=== PATIENT | female | born 1970 | race American Indian/Alaskan Native ===

== ENCOUNTER 2016-05-31 08:15 | Emergency (ER) | payer MEDICARE ==
[2016-05-31 08:42] VITALS: BP 138/94
--- NOTE | 2016-05-31 11:30 | XRay Report ---
RIGHT SHOULDER: History: Right shoulder injury, pain. Routine views demonstrate normal bony and soft tissue structures with normal joint alignment of the shoulder. IMPRESSION: Unremarkable right shoulder films.
--- NOTE | 2016-05-31 11:30 | XRay Report ---
RIGHT KNEE, 3 views: History: Right knee injury, pain. The bony architecture is intact without evidence of fracture or dislocation. No significant soft tissue abnormality is seen. IMPRESSION: Normal right knee.
--- NOTE | 2016-05-31 12:02 | Emergency Department Report ---
ED Fall HPI - General Chief Complaint: Fall Stated Complaint: FALL/RT KNEE/SHOULDER PAIN Time Seen by Provider: 05/31/16 10:15 Source: patient Mode of arrival: Ambulatory Limitations: No Limitations - History of Present Illness Initial Comments: Patient presents after falling down 5 stairs running after her dogs. She complains of right shoulder and right knee pain. She has tried tramadol and ibuprofen 800 mg with no relief. She denies hitting her head, headache or LOC. Complaint: fall -: Sudden Fall From: down stairs (#) (5) When Fall Occurred: other (occurrence was last night at 8:30 PM) Fall Witnessed: no Place Fall Occurred: home Loss of Consciousness: none Prolonged Down Time?: no Symptoms Prior to Fall: none Location - Extremities: Right: Shoulder, Knee Severity: severe Severity scale (0 -10): 10 Quality: sharp, aching Context: tripped/slipped Associated Symptoms: denies - Related Data Home Medications Medication Instructions Recorded Confirmed Last Taken Insulin Glargine,Hum.rec.anlog 60 unit SQ QHS 04/04/13 01/15/16 10/29/14 [Lantus Solostar] Lisinopril [Zestril TAB] 20 mg PO QDAY 04/04/13 01/15/16 10/29/14 Insulin Aspart Prot/Aspart 40 units SUB-Q BID 01/15/16 01/15/16 Unknown [NovoLOG Mix 70/30 VIAL] Previous Rx's Medication Instructions Recorded Last Taken Type Levofloxacin [Levaquin TAB] 750 mg PO QDAY #10 tablet 01/15/16 Unknown Rx Cyclobenzaprine HCl 7.5 mg PO BID PRN #14 tab 05/31/16 Unknown Rx [Cyclobenzaprine 7.5 MG TAB] Diclofenac Sodium 75 mg PO DAILY #7 tablet. 05/31/16 Unknown Rx Allergies Allergy/AdvReac Type Severity Reaction Status Date / Time morphine Allergy DECREASED Verified 05/31/16 08:38 HR shellfish derived Allergy Shortness Verified 05/31/16 08:38 of Breath ED Review of Systems ROS: Stated complaint: FALL/RT KNEE/SHOULDER PAIN Other details as noted in HPI Constitutional: denies: chills, fever ENT: denies: ear pain, throat pain Respiratory: denies: cough, shortness of breath, wheezing Cardiovascular: denies: chest pain, palpitations Gastrointestinal: denies: abdominal pain, nausea, diarrhea Musculoskeletal: as per HPI Skin: denies: rash, lesions Neurological: denies: headache, weakness, paresthesias Psychiatric: denies: anxiety, depression ED Past Medical Hx - Past Medical History Hx Hypertension: Yes Hx CVA: No Hx Heart Attack/AMI: No Hx Congestive Heart Failure: No Hx Diabetes: Yes Hx Deep Vein Thrombosis: No Hx Pulmonary Embolism: No Hx GERD: No Hx Liver Disease: No Hx Renal Disease: No Hx Sickle Cell Disease: No Hx Arthritis: No Hx Headaches / Migraines: No Hx Seizures: No Hx Kidney Stones: No Hx Psychiatric Treatment: No Hx Asthma: Yes Hx COPD: No Hx Tuberculosis: No Hx Dementia: No Hx HIV: No Additional medical history: enlarge heart - Surgical History Hx Coronary Stent: No Hx Open Heart Surgery: No Hx Pacemaker: No Hx Internal Defibrillator: No Hx Cholecystectomy: No Hx Appendectomy: No Hx Breast Surgery: No Additional Surgical History: TUBAL LIGATION. Hysterectomy - Social History Smoking Status: Never Smoker Substance Use Type: None - Medications Home Medications: Home Medications Medication Instructions Recorded Confirmed Last Taken Type Insulin Glargine,Hum.rec.anlog 60 unit SQ QHS 04/04/13 01/15/16 10/29/14 History [Lantus Solostar] Lisinopril [Zestril TAB] 20 mg PO QDAY 04/04/13 01/15/16 10/29/14 History Insulin Aspart Prot/Aspart 40 units SUB-Q BID 01/15/16 01/15/16 Unknown History [NovoLOG Mix 70/30 VIAL] Levofloxacin [Levaquin TAB] 750 mg PO QDAY #10 tablet 01/15/16 Unknown Rx Cyclobenzaprine HCl 7.5 mg PO BID PRN #14 tab 05/31/16 Unknown Rx [Cyclobenzaprine 7.5 MG TAB] Diclofenac Sodium 75 mg PO DAILY #7 tablet. 05/31/16 Unknown Rx ED Physical Exam - General Limitations: No Limitations General appearance: alert, in no apparent distress - Head Head exam: Present: atraumatic, normocephalic - Eye Eye exam: Present: normal appearance - Neck Neck exam: Present: normal inspection, full ROM. Absent: tenderness - Respiratory Respiratory exam: Present: normal lung sounds bilaterally. Absent: respiratory distress - Cardiovascular Cardiovascular Exam: Present: regular rate, normal rhythm. Absent: systolic murmur, diastolic murmur, rubs, gallop - GI/Abdominal GI/Abdominal exam: Present: soft, normal bowel sounds. Absent: tenderness - Expanded Upper Extremity Exam Right Shoulder Exam: Present: normal inspection, full ROM (but with pain), tenderness (anterior). Absent: swelling, abrasion, ecchymosis Upper Arm exam: Present: normal inspection, full ROM Elbow exam: Present: normal inspection, full ROM Forearm Wrist exam: Present: normal inspection, full ROM Hand Wrist exam: Present: normal inspection, full ROM Neuro motor exam: Present: wrist extension intact, thumb opposition intact, thumb IP flexion intact, thumb adduction intact Neurosensory exam: Present: radial nerve intact, ulnar nerve intact Vascular: Absent: vascular compromise - Expanded Lower Extremity Exam Right Hip exam: Present: normal inspection, full ROM Upper Leg exam: Present: normal inspection, full ROM Knee exam: Present: normal inspection, tenderness (right anterior). Absent: full ROM (Limited without pain), swelling, abrasion, ecchymosis, deformity Lower Leg exam: Present: normal inspection, full ROM. Absent: tenderness Ankle exam: Present: normal inspection, full ROM. Absent: tenderness Neuro vascular tendon exam: Present: no vascular compromise - Neurological Exam Neurological exam: Present: alert, oriented X3 - Psychiatric Psychiatric exam: Present: normal affect, normal mood - Skin Skin exam: Present: warm, dry, intact, normal color. Absent: rash ED Course Vital Signs 05/31/16 08:39 Temperature 97.7 F Pulse Rate 101 H Respiratory 16 Rate Blood Pressure 138/94 O2 Sat by Pulse 100 Oximetry ED Medical Decision Making - Medical Decision Making Patient presents after a fall down the steps, complaining of right shoulder and right knee pain. X-rays of shoulder and knee are negative. We will give Flexeril twice a day and diclofenac. We will advise patient to follow up with PCP if symptoms do not resolve or worsen. - Differential Diagnosis knee fracture, sprain, muscle spasm Critical Care Time: No Critical care attestation.: If time is entered above; I have spent that time in minutes in the direct care of this critically ill patient, excluding procedure time. ED Disposition Clinical Impression: Shoulder sprain, Knee sprain Disposition: DISCHARGED TO HOME OR SELFCARE Is pt being admited?: No Does the pt Need Aspirin: No Condition: Stable Instructions: Shoulder Sprain (ED), Knee Sprain (ED), Knee Exercises (GEN) Additional Instructions: Do not take diclofenac with any other inside a including Motrin, ibuprofen, Aleve. Rest, ice, heat. Follow with PCP if symptoms do not resolve or worsen. Prescriptions: Cyclobenzaprine HCl [Cyclobenzaprine 7.5 MG TAB] 7.5 mg PO BID PRN #14 tab PRN Reason: Pain Diclofenac Sodium 75 mg PO DAILY #7 tablet. Time of Disposition: 12:07
== END 2016-05-31 12:31 | disposition home or self-care (01) ==
LOC: ED 08:15
DX: S83.91XA Sprain of unspecified site of right knee, initial encounter (principal); S43.401A Unspecified sprain of right shoulder joint, initial encounter; I10 Essential (primary) hypertension; E11.9 Type 2 diabetes mellitus without complications; J45.909 Unspecified asthma, uncomplicated; Z79.4 Long term (current) use of insulin; Z88.5 Allergy status to narcotic agent; Z91.013 Allergy to seafood; W10.9XXA Fall (on) (from) unspecified stairs and steps, initial encounter; Y93.9 Activity, unspecified; Y92.009 Unspecified place in unspecified non-institutional (private) residence as the place of occurrence of the external cause; Y99.9 Unspecified external cause status

== ENCOUNTER 2016-06-28 18:36 | Emergency (ER) | payer MEDICARE ==
[2016-06-28 22:25] VITALS: BP 158/111
== END 2016-06-29 01:20 | disposition left against medical advice (07) ==
LOC: ED 18:36
DX: M79.604 Pain in right leg (principal); Z53.21 Procedure and treatment not carried out due to patient leaving prior to being seen by health care provider

== ENCOUNTER 2016-09-20 17:25 | Emergency (ER) | payer OTHER, MEDICARE ==
[2016-09-20] MEDS ORDERED: PERCOCET 5/325 PO ONE (20:26)
[2016-09-20] MEDS ORDERED: VALIUM PO ONE (20:26)
[2016-09-20] MEDS ORDERED: NACL ONE (20:27)
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
[2016-09-20 20:41] LABS: Basophils % (Auto) 0.6 % (0.0-1.8); Eosinophils % (Auto) 0.9 % (0.0-4.3); Hematocrit 37.5 % (30.3-42.9); Hemoglobin 12.4 gm/dl (10.1-14.3); Mean Corpuscular HGB Conc 33 % (30-34); Mean Corpuscular Hemoglobin 31 pg (28-32); Mean Corpuscular Volume 94 fl (79-97); Platelet Count 173 K/mm3 (140-440); Red Blood Count 3.98 M/mm3 (3.65-5.03); Red Cell Distribution Width 12.4 % (13.2-15.2); White Blood Count 11.7 K/mm3 (4.5-11.0)
[2016-09-20 20:51] LABS: INR 1.02 (0.87-1.13)
[2016-09-20 20:52] LABS: Partial Thromboplastin Time 34.4 Sec. (24.2-36.6)
[2016-09-20 21:27] LABS: Anion Gap 19 mmol/L; Blood Urea Nitrogen 7 mg/dL (7-17); Calcium 8.9 mg/dL (8.4-10.2); Carbon Dioxide 21 mmol/L (22-30); Chloride 100.5 mmol/L (98-107); Glucose 194 mg/dL (65-100); Potassium 3.7 mmol/L (3.6-5.0); Sodium 137 mmol/L (137-145)
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
[2016-09-21 01:18] VITALS: BP 116/65
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
== END 2016-09-21 01:16 | disposition home or self-care (01) ==
LOC: ED 17:25
DX: R10.84 Generalized abdominal pain (principal); R07.9 Chest pain, unspecified; I10 Essential (primary) hypertension; E11.9 Type 2 diabetes mellitus without complications; J45.909 Unspecified asthma, uncomplicated; Z98.51 Tubal ligation status; Z90.710 Acquired absence of both cervix and uterus; Z79.4 Long term (current) use of insulin; Z88.5 Allergy status to narcotic agent; Z91.013 Allergy to seafood; V49.59XA Passenger injured in collision with other motor vehicles in traffic accident, initial encounter; Y93.89 Activity, other specified; Y99.8 Other external cause status; Y92.89 Other specified places as the place of occurrence of the external cause
CPT/HCPCS: 36415; 71010; 71260; 72170; 74177; 80048; 85025; 85610; 85730; 99285; Q9967

== ENCOUNTER 2017-02-10 09:50 | Emergency (ER) | payer MEDICARE ==
--- NOTE | 2017-02-10 10:54 | XRay Report ---
Chest 2 views: History: Shortness of breath. Findings: Normal cardiomediastinal silhouette. Trachea is midline. No consolidation, pneumothorax or pleural effusion. Impression: No acute cardiopulmonary findings.
[2017-02-10 10:57] LABS: Basophils % (Auto) 0.7 % (0.0-1.8); Eosinophils % (Auto) 1.9 % (0.0-4.3); Hematocrit 37.7 % (30.3-42.9); Mean Corpuscular HGB Conc 35 % (30-34); Mean Corpuscular Hemoglobin 33 pg (28-32); Mean Corpuscular Volume 95 fl (79-97); Platelet Count 152 K/mm3 (140-440); Red Blood Count 3.97 M/mm3 (3.65-5.03); Red Cell Distribution Width 12.2 % (13.2-15.2); White Blood Count 8.3 K/mm3 (4.5-11.0)
[2017-02-10 11:15] LABS: Anion Gap 18 mmol/L; BUN/Creatinine Ratio 12; Blood Urea Nitrogen 7 mg/dL (7-17); Carbon Dioxide 25 mmol/L (22-30); Chloride 100.5 mmol/L (98-107); Glucose 202 mg/dL (65-100); Potassium 4.2 mmol/L (3.6-5.0); Sodium 139 mmol/L (137-145)
--- NOTE | 2017-02-10 11:32 | Emergency Department Report ---
ED Lower Extremity HPI - General Chief Complaint: Dyspnea/Respdistress Stated Complaint: BLOOD CLOT Time Seen by Provider: 02/10/17 10:41 Source: patient Mode of arrival: Ambulatory Limitations: No Limitations - History of Present Illness Initial Comments: 46-year-old female with known history of DVT here with complaint of right leg pain. Patient states that she stopped L request approximate 30 days given and has worsening leg pain. She complains of some mild shortness of breath but no chest pain. No fevers chills nausea vomiting. States that her leg has felt slightly swollen. No recent additional trauma. MD Complaint: leg injury Type of Injury: other Place: home Severity: mild Improves With: nothing Worsens With: weight bearing - Related Data Home Medications Medication Instructions Recorded Confirmed Last Taken Insulin Glargine,Hum.rec.anlog 60 unit SQ QHS 04/04/13 09/20/16 10/29/14 [Lantus Solostar] Lisinopril [Zestril TAB] 20 mg PO QDAY 04/04/13 09/20/16 10/29/14 Insulin Aspart Prot/Aspart(Nf) 40 units SUB-Q BID 01/15/16 09/20/16 Unknown [NovoLOG Mix 70/30 VIAL] Apixaban [Eliquis] 5 mg PO BID 09/20/16 09/20/16 Unknown Furosemide [Lasix TAB] 20 mg PO QDAY 09/20/16 09/20/16 Unknown Previous Rx's Medication Instructions Recorded Last Taken Type HYDROcodone/APAP 5-325 [[place] 1 each PO Q6HR PRN #8 tablet 09/21/16 Unknown Rx 5/325] Allergies Allergy/AdvReac Type Severity Reaction Status Date / Time morphine Allergy DECREASED Verified 05/31/16 08:38 HR shellfish derived Allergy Shortness Verified 05/31/16 08:38 of Breath ED Review of Systems ROS: Stated complaint: BLOOD CLOT Other details as noted in HPI Respiratory: shortness of breath Cardiovascular: denies: chest pain, palpitations, dyspnea on exertion Musculoskeletal: denies: back pain, arthralgia Neurological: denies: headache, weakness ED Past Medical Hx - Past Medical History Hx Hypertension: Yes Hx CVA: No Hx Heart Attack/AMI: No Hx Congestive Heart Failure: No Hx Diabetes: Yes Hx Deep Vein Thrombosis: No Hx Pulmonary Embolism: No Hx GERD: No Hx Liver Disease: No Hx Renal Disease: No Hx Sickle Cell Disease: No Hx Arthritis: No Hx Headaches / Migraines: No Hx Seizures: No Hx Kidney Stones: No Hx Psychiatric Treatment: No Hx Asthma: Yes Hx COPD: No Hx Tuberculosis: No Hx Dementia: No Hx HIV: No Additional medical history: enlarge heart - Surgical History Hx Coronary Stent: No Hx Open Heart Surgery: No Hx Pacemaker: No Hx Internal Defibrillator: No Hx Cholecystectomy: No Hx Appendectomy: No Hx Breast Surgery: No Additional Surgical History: TUBAL LIGATION. Hysterectomy - Family History Family history: no significant - Social History Smoking Status: Never Smoker Substance Use Type: None - Medications Home Medications: Home Medications Medication Instructions Recorded Confirmed Last Taken Type Insulin Glargine,Hum.rec.anlog 60 unit SQ QHS 04/04/13 09/20/16 10/29/14 History [Lantus Solostar] Lisinopril [Zestril TAB] 20 mg PO QDAY 04/04/13 09/20/16 10/29/14 History Insulin Aspart Prot/Aspart(Nf) 40 units SUB-Q BID 01/15/16 09/20/16 Unknown History [NovoLOG Mix 70/30 VIAL] Apixaban [Eliquis] 5 mg PO BID 09/20/16 09/20/16 Unknown History Furosemide [Lasix TAB] 20 mg PO QDAY 09/20/16 09/20/16 Unknown History HYDROcodone/APAP 5-325 [[place] 1 each PO Q6HR PRN #8 tablet 09/21/16 Unknown Rx 5/325] ED Physical Exam - General Limitations: No Limitations General appearance: alert, in no apparent distress - Head Head exam: Present: atraumatic, normocephalic - Eye Eye exam: Present: normal appearance. Absent: scleral icterus, conjunctival injection - ENT ENT exam: Present: mucous membranes moist - Neck Neck exam: Present: normal inspection - Respiratory Respiratory exam: Present: normal lung sounds bilaterally. Absent: respiratory distress, wheezes, rales - Cardiovascular Cardiovascular Exam: Present: regular rate, normal rhythm. Absent: systolic murmur, diastolic murmur, rubs, gallop - GI/Abdominal GI/Abdominal exam: Present: soft, normal bowel sounds. Absent: distended, tenderness - Extremities Exam Extremities exam: Present: normal inspection - Back Exam Back exam: Present: normal inspection - Neurological Exam Neurological exam: Present: alert, oriented X3 - Psychiatric Psychiatric exam: Present: normal affect, normal mood - Skin Skin exam: Present: warm, dry, intact, normal color. Absent: rash ED Course Vital Signs 02/10/17 02/10/17 09:55 13:06 Temperature 99.3 F Pulse Rate 94 H 94 H Respiratory 16 Rate Blood Pressure 134/85 Blood Pressure 108/69 [Left] O2 Sat by Pulse 18 L 100 Oximetry ED Lower Extremity MDM - Lab Data Result diagrams: 02/10/17 Unknown 02/10/17 10:06 Laboratory Results - last 24 hr 02/10/17 02/10/17 10:06 Unknown WBC 8.3 RBC 3.97 Hgb 13.0 Hct 37.7 MCV 95 MCH 33 H MCHC 35 H RDW 12.2 L Plt Count 152 Lymph % (Auto) 40.6 H [place] % (Auto) 8.0 H Eos % (Auto) 1.9 Baso % (Auto) 0.7 Lymph # 3.4 [place] # 0.7 Eos # 0.2 Baso # 0.1 Seg Neutrophils % 48.8 Seg Neutrophils # 4.0 Sodium 139 Potassium 4.2 Chloride 100.5 Carbon Dioxide 25 Anion Gap 18 BUN 7 Creatinine 0.6 L Estimated GFR > 60 BUN/Creatinine Ratio 12 Glucose 202 H Calcium 9.0 Troponin T < 0.010 - EKG Data -: EKG Interpreted by [place] - EKG Data 02/10/17 11:38 Sinus 85 normal axis normal intervals no ST-T wave changes - Medical Decision Making 46-year-old female with known history of DVT here with complaints of right leg pain and swelling. Patient feels that her DVT may recurred. Plan ultrasound check labs and will reassess. Labs unremarkable DVT study negative. Plan to discharge home. Discussed with patient and planned to have the patient follow up for repeat ultrasound in 3-5 days. Portions of this chart were dictated with dictation software. There may be dictation errors contained within this note. Critical care attestation.: If time is entered above; I have spent that time in minutes in the direct care of this critically ill patient, excluding procedure time. ED Disposition Clinical Impression: Leg pain Disposition: DC-01 TO HOME OR SELFCARE Is pt being admited?: No Condition: Stable Instructions: Knee Pain (ED) Additional Instructions: Please follow up for a repeat ultrasound in 3-5 days. Referrals: PRIMARY CARE,MD [Primary Care Provider] - 3-5 Days
[2017-02-10 14:06] VITALS: BP 110/70
== END 2017-02-10 14:07 | disposition home or self-care (01) ==
LOC: ED 09:50
DX: M79.604 Pain in right leg (principal); I10 Essential (primary) hypertension; E11.9 Type 2 diabetes mellitus without complications; J45.909 Unspecified asthma, uncomplicated
CPT/HCPCS: 36415; 71020; 80048; 84484; 85025; 93005; 93010

== ENCOUNTER 2017-06-17 10:09 | Emergency (ER) | payer MEDICARE ==
[2017-06-17] MEDS ORDERED: TYLENOL ONE (10:34)
[2017-06-17 10:35] VITALS: BP 150/86
[2017-06-17] MEDS ORDERED: TYLENOL PO ONE (10:42)
== END 2017-06-17 17:20 | disposition left against medical advice (07) ==
LOC: ED 10:09
DX: R05 Cough (principal); Z53.21 Procedure and treatment not carried out due to patient leaving prior to being seen by health care provider

== ENCOUNTER 2017-06-23 04:28 | Emergency (ER) | payer MEDICARE ==
[2017-06-23] MEDS ORDERED: MOTRIN PO ONE (09:42)
[2017-06-23] MEDS ORDERED: DELTASONE PO ONE (09:42)
[2017-06-23] MEDS ORDERED: ROBITUSSIN PO ONE (09:42)
--- NOTE | 2017-06-23 09:47 | Emergency Department Report ---
Minor Respiratory - HPI Chief Complaint: Upper Respiratory Infection Stated Complaint: FLU SX Time Seen by Provider: 06/23/17 09:41 Severity: moderate Minor Respiratory: Yes Sore Throat, Yes Able to Tolerate Fluids, Yes Cough ( productive), Yes Chest Pain (with coughing), No Rhinorrhea, No Ear Pain, No Sick Contacts, No Hemoptysis, No Shortness of Breath, No Fever Other History: Patient is a 46-year-old female who presents to ED complaining of body aches, some productive coughing for about a week. Patient states that she's been taking some TheraFlu with no relief. Patient is also complaining of her right lower leg pain. Patient states his become a bit difficult for her to walk sometimes from body aches. She denies fevers/chills/nausea vomiting/ abdominal pain/chest pain/shortness of breath. ED Review of Systems ROS: Stated complaint: FLU SX Other details as noted in HPI Constitutional: denies: chills, fever Eyes: denies: eye pain, eye discharge, vision change ENT: denies: ear pain, throat pain Respiratory: denies: cough, shortness of breath, wheezing Cardiovascular: denies: chest pain, palpitations Endocrine: no symptoms reported Gastrointestinal: denies: abdominal pain, nausea, diarrhea Genitourinary: denies: urgency, dysuria, frequency, hematuria, discharge Musculoskeletal: myalgia. denies: back pain, joint swelling, arthralgia Skin: denies: rash, lesions Neurological: denies: headache, weakness, numbness, paresthesias, confusion Psychiatric: denies: anxiety, depression Hematological/Lymphatic: denies: easy bleeding, easy bruising ED Past Medical Hx - Past Medical History Previous Medical History?: Yes Hx Hypertension: Yes Hx CVA: No Hx Heart Attack/AMI: No Hx Congestive Heart Failure: No Hx Diabetes: Yes Hx Deep Vein Thrombosis: No Hx Pulmonary Embolism: No Hx GERD: No Hx Liver Disease: No Hx Renal Disease: No Hx Sickle Cell Disease: No Hx Arthritis: No Hx Headaches / Migraines: No Hx Seizures: No Hx Kidney Stones: No Hx Psychiatric Treatment: No Hx Asthma: Yes Hx COPD: No Hx Tuberculosis: No Hx Dementia: No Hx HIV: No Additional medical history: enlarge heart - Surgical History Past Surgical History?: Yes Hx Coronary Stent: No Hx Open Heart Surgery: No Hx Pacemaker: No Hx Internal Defibrillator: No Hx Cholecystectomy: No Hx Appendectomy: No Hx Breast Surgery: No Additional Surgical History: TUBAL LIGATION. Hysterectomy - Social History Smoking Status: Never Smoker Substance Use Type: None - Medications Home Medications: Home Medications Medication Instructions Recorded Confirmed Last Taken Type Insulin Glargine,Hum.rec.anlog 60 unit SQ QHS 04/04/13 09/20/16 10/29/14 History [Lantus Solostar] Lisinopril [Zestril TAB] 20 mg PO QDAY 04/04/13 09/20/16 10/29/14 History Insulin Aspart Prot/Aspart(Nf) 40 units SUB-Q BID 01/15/16 09/20/16 Unknown History [NovoLOG Mix 70/30 VIAL] Apixaban [Eliquis] 5 mg PO BID 09/20/16 09/20/16 Unknown History Furosemide [Lasix TAB] 20 mg PO QDAY 09/20/16 09/20/16 Unknown History HYDROcodone/APAP 5-325 [[place] 1 each PO Q6HR PRN #8 tablet 09/21/16 Unknown Rx 5/325] Aspirin 325 mg PO BID #30 tablet 06/23/17 Unknown Rx Azithromycin [Zithromax TAB] 500 mg PO QDAY #6 tablet 06/23/17 Unknown Rx Benzonatate [Tessalon Perles] 100 mg PO Q8HR #24 capsule 06/23/17 Unknown Rx guaiFENesin [Robitussin] 100 mg PO Q6H #100 ml 06/23/17 Unknown Rx Minor Respiratory Exam - Exam General: Vital signs noted. No distress. Alert and acting appropriately. GENERAL: Alert and oriented x3, no apparent distress, Normal Gait, atraumatic. EXTREMITIES/MUSCULOSKELETAL: No cyanosis, clubbing, rash, lesions or edema. Full ROM in all joints upper and lower extremities bilaterally. UE/LE Pulses 2+ bilaterally. LE and UE 5+ strength bilaterally, mild tenderness to palpation of bilateral calf. Right more than left. Homans sign negative, NEUROLOGIC: The patient is cooperative with no focal neurologic deficits. SKIN: Warm and dry, No lesions, No ulceration or induration present. HEENT: Yes Moist Mucous Membranes, No Pharyngeal Erythema, No Pharyngeal Exudates, No Rhinorrhea, No Conjuctival Injection, No Frontal Tenderness, No Maxillary Tenderness Ear: Neither TM Bulge, Neither TM Erythema, Neither EAC Pain, Neither EAC Discharge Neck: Yes Supple, No Adenopathy Lungs: Yes Good Air Exchange, No Wheezes, No Ronchi, No Stridor, No Cough, No Labored Respirations, No Retractions, No Use of Accessory Muscles, No Other Abnormal Lung Sounds Heart: Yes Regular, No Murmur Abdomen: Yes Normal Bowel Sounds, No Tenderness, No Peritoneal Signs Skin: No Rash, No Edema Neurologic: Alert and oriented, no deficits. Musculoskeletal: Unremarkable. ED Course Vital Signs 06/23/17 06:09 Temperature 98 F Pulse Rate 101 H Blood Pressure 130/87 O2 Sat by Pulse 98 Oximetry - Consultations Consultation #1: VIKRAM OLIVIAFER KEVIN Female : 1970 [facility]# [id number] 06/23/17 11:09 - Radiology Dept. Note by JOANN RANDLE [facility] Num: [id number] : 1970 Patient Age: 46 VASCULAR LAB.PRELIMINARY REPORT.RLE VENOUS DUPLEX DONE.NO EVIDENCE OF DVT IN VESSELS VISUALIZED.SVT NOTED IN THE RT.LSV FROM PX TO DISTAL CALF.JOMAR (NURSE TECH) INFORMED AT 1102. Initialized on 06/23/17 11:09 - END OF NOTE 06/23/17 11:27 ED Medical Decision Making - Radiology Data Radiology results: report reviewed, image reviewed Fluoro Time In Minutes: ROUTINE CHEST, TWO VIEWS: HISTORY: Productive cough for one week. There is a hazy 2 x 3 cm air space opacity in right upper lobe which is a new finding since 02/10/17. Given the history, early pneumonia should be considered. The remainder of the lungs are clear. No pleural effusion or pneumothorax. Normal heart and mediastinal structures. Normal bony thorax. IMPRESSION: Small right upper lobe opacity concerning for early pneumonia. Transcribed By: TTR Dictated By: ANNA CHAVARRIA JR, MD Electronically Authenticated By: ANNA CHAVARRIA JR, MD Signed Date/Time: 06/23/17 1033 - Medical Decision Making 46-year-old female presents with possibly pneumonia/superficial vein thrombosis ED course: She received first dose azithromycin, Motrin, Robitussin in the ED Chest x-ray ordered, see report above, Ultrasound lower extremity Doppler shows superficial vascular thrombosis I discussed his findings with the patient sending patient home with azithromycin prophylactically for pneumonia based on x -ray findings. Based on Doppler results patient will go home on aspirin therapy and follow-up with vascular. I encouraged patient to me she takes aspirin daily. Encourage patient to follow -up with vascular as referred. Vital signs are normal patient is in no acute distress. I discussed the patient has any worsening symptoms to return to ED immediately. Patient is alert and oriented 3, able to ambulate appropriately and has no neuro deficits. I discussed with patient presented to follow-up with vascular as referred and follow-up with her primary care physician as well. I gave patient some referrals if needed she is to make use of them. Patient states understanding instructions and will follow-up I discussed case. Dr. Alas attending physician who agrees with plan and encouraged aspirin daily use with vascular follow-up Critical care attestation.: If time is entered above; I have spent that time in minutes in the direct care of this critically ill patient, excluding procedure time. ED Disposition Clinical Impression: Opacity of lung on imaging study, Superficial vein thrombosis Disposition: TO HOME OR SELFCARE Is pt being admited?: No Does the pt Need Aspirin: No Condition: Stable Instructions: Viral Pneumonia (ED), Community-acquired Pneumonia (ED), Venous Thromboembolism (ED) Additional Instructions: Make sure to follow up with the primary care physician as discussed. Take your medications as you've been prescribed. Sure to follow-up with vascular as referred. She starts developing shortness of breath or return to ED or for worsening pain If you have any worsening symptoms or develop new symptoms please return to ED immediately. Prescriptions: Aspirin 325 mg PO BID #30 tablet Azithromycin [Zithromax TAB] 500 mg PO QDAY #6 tablet Benzonatate [Tessalon Perles] 100 mg PO Q8HR #24 capsule guaiFENesin [Robitussin] 100 mg PO Q6H #100 ml Referrals: MAGGIE KELLER MD [Staff Physician] - 3-5 Days YOSSI MONTIEL MD [Staff Physician] - 3-5 Days PRIMARY CAREMD [Primary Care Provider] - 3-5 Days WILVER MERCADO DO [Staff Physician] - 3-5 Days [facility] [Outside] - 3-5 Days [facility] [Outside] - 3-5 Days Forms: Accompanied Note, Work/School Release Form(ED) Time of Disposition: 11:28
--- NOTE | 2017-06-23 10:40 | XRay Report ---
ROUTINE CHEST, TWO VIEWS: HISTORY: Productive cough for one week. There is a hazy 2 x 3 cm air space opacity in right upper lobe which is a new finding since 02/10/17. Given the history, early pneumonia should be considered. The remainder of the lungs are clear. No pleural effusion or pneumothorax. Normal heart and mediastinal structures. Normal bony thorax. IMPRESSION: Small right upper lobe opacity concerning for early pneumonia.
[2017-06-23 10:43] VITALS: BP 109/63
[2017-06-23] MEDS ORDERED: ZITHROMAX PO ONE (11:22)
== END 2017-06-23 11:37 | disposition home or self-care (01) ==
LOC: ED 04:28
DX: R91.8 Other nonspecific abnormal finding of lung field (principal); I82.811 Embolism and thrombosis of superficial veins of right lower extremity; I10 Essential (primary) hypertension; E11.9 Type 2 diabetes mellitus without complications; Z79.4 Long term (current) use of insulin; Z88.5 Allergy status to narcotic agent; Z90.710 Acquired absence of both cervix and uterus; Z91.013 Allergy to seafood
CPT/HCPCS: 71046; 87116; 87430; 93005; 93010; 93971; 99284; J7512

== ENCOUNTER 2017-08-09 09:35 | Emergency (ER) | payer MEDICARE ==
[2017-08-09 10:09] VITALS: BP 138/96
--- NOTE | 2017-08-09 10:54 | XRay Report ---
RIGHT SHOULDER, 3 VIEWS: HISTORY: right shoulder pain and numbness. Normal bone mineralization. No acute osseous injury or joint pathology is detected. The soft tissues are unremarkable. No change is appreciated since 05/31/16. IMPRESSION: Right shoulder within normal limits.
[2017-08-09] MEDS ORDERED: MOTRIN PO ONE (12:37)
--- NOTE | 2017-08-09 12:45 | Emergency Department Report ---
ED Upper Extremity Inj HPI - General Chief Complaint: Shoulder Injury Stated Complaint: SHOULDER/ARM PAIN Time Seen by Provider: 08/09/17 12:29 Source: patient Mode of arrival: Ambulatory Limitations: No Limitations - History of Present Illness Initial Comments: This is a 46-year-old female nontoxic, well nourished in appearance, no acute signs of distress presents to the ED with c/o of acute on chronic right shoulder pain. Patient stated that she tried to closed door and heard a pop sensation in the right shoulder and has pain and decreased range of motion. She stated her primary care doctor has been giving her steroid shots and is trying to r/o possible rotator cuff tear but denies follow-up with orthopedic doctor or possible MRI. Patient denies any numbness, tingling, fever, chills, nausea, vomiting, chest pain, short of breath, headache or stiff neck. Patient denies any direct trauma. She states allergies to morphine and shellfish. MD Complaint: Injury to:: right, shoulder -: days(s) (1) Other Extremity Injury: Shoulder: Right Other Injuries: none Place: home Severity scale (0 -10): 8 Improves With: immobilization Worsens With: movement of extremity Associated Symptoms: denies other symptoms. denies: weakness, numbness, neck pain, suspects foreign body, nausea/vomiting, heard/felt popping sensat - Related Data Home Medications Medication Instructions Recorded Confirmed Last Taken Insulin Glargine,Hum.rec.anlog 60 unit SQ QHS 04/04/13 09/20/16 10/29/14 [Lantus Solostar] Lisinopril [Zestril TAB] 20 mg PO QDAY 04/04/13 09/20/16 10/29/14 Insulin Aspart Prot/Aspart(Nf) 40 units SUB-Q BID 01/15/16 09/20/16 Unknown [NovoLOG Mix 70/30 VIAL] Apixaban [Eliquis] 5 mg PO BID 09/20/16 09/20/16 Unknown Furosemide [Lasix TAB] 20 mg PO QDAY 09/20/16 09/20/16 Unknown Previous Rx's Medication Instructions Recorded Last Taken Type HYDROcodone/APAP 5-325 [[place] 1 each PO Q6HR PRN #8 tablet 09/21/16 Unknown Rx 5/325] Aspirin 325 mg PO BID #30 tablet 06/23/17 Unknown Rx Azithromycin [Zithromax TAB] 500 mg PO QDAY #6 tablet 06/23/17 Unknown Rx Benzonatate [Tessalon Perles] 100 mg PO Q8HR #24 capsule 06/23/17 Unknown Rx guaiFENesin [Robitussin] 100 mg PO Q6H #100 ml 06/23/17 Unknown Rx Ibuprofen [Motrin] 600 mg PO Q8H PRN #30 tablet 08/09/17 Unknown Rx Allergies Allergy/AdvReac Type Severity Reaction Status Date / Time morphine Allergy DECREASED Verified 05/31/16 08:38 HR shellfish derived Allergy Shortness Verified 05/31/16 08:38 of Breath ED Review of Systems ROS: Stated complaint: SHOULDER/ARM PAIN Other details as noted in HPI Constitutional: denies: chills, fever Eyes: denies: eye pain, eye discharge, vision change ENT: denies: ear pain, throat pain Respiratory: denies: cough, shortness of breath, wheezing Cardiovascular: denies: chest pain, palpitations Endocrine: no symptoms reported Gastrointestinal: denies: abdominal pain, nausea, diarrhea Genitourinary: denies: urgency, dysuria, discharge Musculoskeletal: arthralgia. denies: back pain, joint swelling Skin: denies: rash, lesions Neurological: denies: headache, weakness, paresthesias Psychiatric: denies: anxiety, depression Hematological/Lymphatic: denies: easy bleeding, easy bruising ED Past Medical Hx - Past Medical History Previous Medical History?: Yes Hx Hypertension: Yes Hx CVA: No Hx Heart Attack/AMI: No Hx Congestive Heart Failure: No Hx Diabetes: Yes Hx Deep Vein Thrombosis: No Hx Pulmonary Embolism: No Hx GERD: No Hx Liver Disease: No Hx Renal Disease: No Hx Sickle Cell Disease: No Hx Arthritis: No Hx Headaches / Migraines: No Hx Seizures: No Hx Kidney Stones: No Hx Psychiatric Treatment: No Hx Asthma: Yes Hx COPD: No Hx Tuberculosis: No Hx Dementia: No Hx HIV: No Additional medical history: enlarge heart - Surgical History Past Surgical History?: Yes Hx Coronary Stent: No Hx Open Heart Surgery: No Hx Pacemaker: No Hx Internal Defibrillator: No Hx Cholecystectomy: No Hx Appendectomy: No Hx Breast Surgery: No Additional Surgical History: TUBAL LIGATION. Hysterectomy - Social History Smoking Status: Never Smoker Substance Use Type: Alcohol - Medications Home Medications: Home Medications Medication Instructions Recorded Confirmed Last Taken Type Insulin Glargine,Hum.rec.anlog 60 unit SQ QHS 04/04/13 09/20/16 10/29/14 History [Lantus Solostar] Lisinopril [Zestril TAB] 20 mg PO QDAY 04/04/13 09/20/16 10/29/14 History Insulin Aspart Prot/Aspart(Nf) 40 units SUB-Q BID 01/15/16 09/20/16 Unknown History [NovoLOG Mix 70/30 VIAL] Apixaban [Eliquis] 5 mg PO BID 09/20/16 09/20/16 Unknown History Furosemide [Lasix TAB] 20 mg PO QDAY 09/20/16 09/20/16 Unknown History HYDROcodone/APAP 5-325 [[place] 1 each PO Q6HR PRN #8 tablet 09/21/16 Unknown Rx 5/325] Aspirin 325 mg PO BID #30 tablet 06/23/17 Unknown Rx Azithromycin [Zithromax TAB] 500 mg PO QDAY #6 tablet 06/23/17 Unknown Rx Benzonatate [Tessalon Perles] 100 mg PO Q8HR #24 capsule 06/23/17 Unknown Rx guaiFENesin [Robitussin] 100 mg PO Q6H #100 ml 06/23/17 Unknown Rx Ibuprofen [Motrin] 600 mg PO Q8H PRN #30 tablet 08/09/17 Unknown Rx ED Physical Exam - General Limitations: No Limitations General appearance: alert, in no apparent distress - Head Head exam: Present: atraumatic, normocephalic - Eye Eye exam: Present: normal appearance Pupils: Present: normal accommodation - ENT ENT exam: Present: normal exam, mucous membranes moist - Neck Neck exam: Present: normal inspection - Respiratory Respiratory exam: Present: normal lung sounds bilaterally. Absent: respiratory distress, wheezes, rales, rhonchi, stridor, chest wall tenderness, accessory muscle use, decreased breath sounds, prolonged expiratory - Cardiovascular Cardiovascular Exam: Present: regular rate, normal rhythm, normal heart sounds. Absent: irregular rhythm, systolic murmur, diastolic murmur, rubs, gallop - GI/Abdominal GI/Abdominal exam: Present: soft, normal bowel sounds - Extremities Exam Extremities exam: Present: normal inspection, full ROM, tenderness, normal capillary refill. Absent: joint swelling - Expanded Upper Extremity Exam Right General: Present: normal inspection Shoulder Exam: Present: normal inspection, other. Absent: full ROM (due to pain ), tenderness, swelling, abrasion, laceration, ecchymosis, deformity, crepidus, dislocation, erythema, tenderness over AC joint Upper Arm exam: Present: normal inspection, full ROM. Absent: tenderness, swelling, abrasion, laceration, ecchymosis, deformity, crepidus, dislocation, erythema Elbow exam: Present: normal inspection, full ROM Forearm Wrist exam: Present: normal inspection, full ROM Hand Wrist exam: Present: normal inspection, full ROM Neuro motor exam: Present: wrist extension intact, thumb opposition intact, thumb IP flexion intact, thumb adduction intact, fingers 2-5 abduction intact Neurosensory exam: Present: 2-point discrimination, radial nerve intact, ulnar nerve intact, median nerve intact Vascular: Present: vascular compromise, normal capillary refill, radial pulse, brachial pulse, ulnar pulse - Back Exam Back exam: Present: normal inspection, full ROM - Neurological Exam Neurological exam: Present: alert, oriented X3, normal gait - Psychiatric Psychiatric exam: Present: normal affect, normal mood - Skin Skin exam: Present: warm, dry, intact, normal color. Absent: rash - Other Other exam information: Unable to perform drop arm test due to pain with ROM. ED Course Vital Signs 08/09/17 09:54 Temperature 98.6 F Pulse Rate 94 H Respiratory 18 Rate Blood Pressure 138/96 O2 Sat by Pulse 100 Oximetry - Reevaluation(s) Reevaluation #1: 08/09/17 12:48 Patient is speaking in full sentences with no signs of distress noted. ED Medical Decision Making - Medical Decision Making This is a 46-year-old female that presents with right shoulder strain. Patient is stable and was examined by me. X-ray has been obtained and dictated by the radiologist within normal limits. Patient received Motrin in the ED. Patient is notified of the x-ray report was questions noted by the patient. Patient received a shoulder immobilizer and was educated on rice therapy. There is no joint swelling or joint redness. No signs of bursitis or cellulitis. Patient was referred to Follow-up with a orthopedic doctor in 3-5 days or if symptoms worsen and continue return to emergency room as soon as possible. At time of discharge, the patient does not seem toxic or ill in appearance. No acute signs of distress noted. Patient agrees to discharge treatment plan of care. No further questions noted by the patient. Critical care attestation.: If time is entered above; I have spent that time in minutes in the direct care of this critically ill patient, excluding procedure time. ED Disposition Clinical Impression: Right shoulder strain Qualifiers: Encounter type: initial encounter Qualified Code(s): S46.911A - Strain of unspecified muscle, fascia and tendon at shoulder and upper arm level, right arm , initial encounter Disposition: TO HOME OR SELFCARE Is pt being admited?: No Does the pt Need Aspirin: No Condition: Stable Instructions: Rotator Cuff Injury (ED), Ibuprofen (By mouth), RICE Therapy (ED) Additional Instructions: Follow-up with a orthopedic doctor in 3-5 days or if symptoms worsen and continue return to emergency room as soon as possible. Prescriptions: Ibuprofen [Motrin] 600 mg PO Q8H PRN #30 tablet PRN Reason: Pain Referrals: RHONDA ALVARADO MD [Primary Care Provider] - 3-5 Days ANETA WHITMORE MD [Staff Physician] - 3-5 Days PRIMARY CAREMD [Referring] - 3-5 Days [facility] [Outside] - 3-5 Days [facility] [Outside] - 3-5 Days Forms: Work/School Release Form(ED)
== END 2017-08-09 13:20 | disposition home or self-care (01) ==
LOC: ED 09:35
DX: S46.911A Strain of unspecified muscle, fascia and tendon at shoulder and upper arm level, right arm, initial encounter (principal); I10 Essential (primary) hypertension; E11.9 Type 2 diabetes mellitus without complications; J45.909 Unspecified asthma, uncomplicated; X58.XXXA Exposure to other specified factors, initial encounter; Y93.89 Activity, other specified; Y92.89 Other specified places as the place of occurrence of the external cause; Y99.8 Other external cause status

== ENCOUNTER 2017-11-14 00:56 | Emergency (ER) | payer MEDICARE ==
[2017-11-14 01:04] VITALS: BP 147/94
[2017-11-14] MEDS ORDERED: ASPIRIN PO ONE (01:39)
[2017-11-14] MEDS ORDERED: NACL 0.9% 1000 ML 1,000 ML IV ONE (01:39)
[2017-11-14 02:28] LABS: Basophils # (Auto) 0.1 K/mm3 (0.0-0.1); Basophils % (Auto) 0.8 % (0.0-1.8); Eosinophils # (Auto) 0.1 K/mm3 (0.0-0.4); Eosinophils % (Auto) 1.5 % (0.0-4.3); Hemoglobin 12.8 gm/dl (10.1-14.3); Lymphocytes # (Auto) 3.9 K/mm3 (1.2-5.4); Lymphocytes % (Auto) 44.6 % (13.4-35.0); Mean Corpuscular HGB Conc 34 % (30-34); Mean Corpuscular Hemoglobin 33 pg (28-32); Mean Corpuscular Volume 97 fl (79-97); Monocytes # (Auto) 0.9 K/mm3 (0.0-0.8); Platelet Count 171 K/mm3 (140-440); Red Cell Distribution Width 12.3 % (13.2-15.2)
[2017-11-14 02:47] LABS: Amorphous Crystals,Urine Few; Bilirubin,Urine NEG (Negative); Blood,Urine NEG (Negative); Color,Urine Straw (Yellow); Mucus,Urine FEW /HPF; Protein,Urine <15 mg/dL mg/dL (Negative); RBC,Urine < 1.0 /HPF (0.0-6.0); Urobilinogen,Urine < 2.0 mg/dL (<2.0); WBC,Urine < 1.0 /HPF (0.0-6.0)
[2017-11-14 02:55] LABS: Alanine Aminotransferase 24 units/L (7-56); Albumin 4.4 g/dL (3.9-5); BUN/Creatinine Ratio 11; Blood Urea Nitrogen 8 mg/dL (7-17); Calcium 9.5 mg/dL (8.4-10.2); Hemolysis Index 7; Lipase 33 units/L (13-60)
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
== END 2017-11-14 03:28 | disposition home or self-care (01) ==
LOC: ED 00:56
DX: G89.29 Other chronic pain (principal); M54.5 Low back pain; I10 Essential (primary) hypertension; E11.9 Type 2 diabetes mellitus without complications; J45.909 Unspecified asthma, uncomplicated; Z79.4 Long term (current) use of insulin; Z90.710 Acquired absence of both cervix and uterus
CPT/HCPCS: 36415; 80053; 81001; 83690; 84484; 85025; 93005; 93010; 99284

== ENCOUNTER 2018-09-03 18:17 | Emergency (ER) | payer MEDICARE ==
--- NOTE | 2018-09-03 19:54 | Emergency Department Report ---
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 Due to findings the following was ordered: labs ED Disposition for MSE Condition: Stable
[2018-09-03 20:40] LABS: Basophils # (Auto) 0.1 K/mm3 (0.0-0.1); Basophils % (Auto) 0.7 % (0.0-1.8); Eosinophils # (Auto) 0.1 K/mm3 (0.0-0.4); Eosinophils % (Auto) 1.3 % (0.0-4.3); Hematocrit 37.5 % (30.3-42.9); Hemoglobin 12.8 gm/dl (10.1-14.3); Lymphocytes # (Auto) 4.4 K/mm3 (1.2-5.4); Lymphocytes % (Auto) 46.3 % (13.4-35.0); Mean Corpuscular HGB Conc 34 % (30-34); Mean Corpuscular Volume 97 fl (79-97); Monocytes # (Auto) 0.7 K/mm3 (0.0-0.8); Monocytes % (Auto) 7.8 % (0.0-7.3); Platelet Count 175 K/mm3 (140-440); Red Blood Count 3.86 M/mm3 (3.65-5.03); Red Cell Distribution Width 12.4 % (13.2-15.2)
[2018-09-03 20:46] LABS: INR 0.95 (0.87-1.13); Partial Thromboplastin Time 29.3 Sec. (24.2-36.6)
[2018-09-03 20:49] LABS: BUN/Creatinine Ratio 16; Blood Urea Nitrogen 11 mg/dL (7-17); Calcium 9.7 mg/dL (8.4-10.2); Hemolysis Index 5
[2018-09-04 00:39] VITALS: BP 136/94
[2018-09-04] MEDS ORDERED: NACL 0.9% 1000 ML 1,000 ML IV ONE (01:20)
[2018-09-04] MEDS ORDERED: HumuLIN R IV ONE (01:20)
[2018-09-04] MEDS ORDERED: TORADOL IV ONE (01:20)
--- NOTE | 2018-09-04 01:21 | Emergency Department Report ---
ED General Adult HPI - General Chief complaint: Extremity Injury, Lower Stated complaint: BLOOD CLOT (L) LEG/NUMBNESS/TINGLING Time Seen by Provider: 09/03/18 19:51 Source: patient, RN notes reviewed, old records reviewed Mode of arrival: Ambulatory Limitations: No Limitations - History of Present Illness Initial comments: Primary care Dr.: Dr. Leo Keenan Past medical history: Right lower extremity, DVT, secondary to trauma, now resolved, diabetes, hypertension, obesity This is a 47-year-old female. The patient is not known to this provider pre viously. The patient presents to the emergency room with a complaint of nontraumatic right leg pain. The pain is achy. It increases with palpation. It decreases with rest. It radiates down the right lower extremity. She thinks it feels similar to a prior DVT. The patient reports no redness, pus or streaking. She reports that she is not . She denies oral contraceptive use. She denies recent surgeries. She denies headache, neck pain, chest pain, abdominal pain, urinary symptoms. On review of systems, she endorses shortness of breath. She reports this is new over the past 2 days. However, on further examination and evaluation, the patient reports intermittent increased shortness of breath, over the past few weeks and months. As per discussion with the patient's partner, the patient snores quite a bit at night. The patient endorses feeling sleepy during the day, endorses sensation of incomplete rest after sleep. She will follow sleep if watching TV, or sitting in front of her computer. Patient does not have a formal diagnosis of sleep apnea that she is aware of -: Gradual, days(s) Location: right, lower extremity Radiation: extremity Severity scale (0 -10): 6 Quality: aching Consistency: other Improves with: other Worsens with: other - Related Data Home Medications Medication Instructions Recorded Confirmed Last Taken Lisinopril [Zestril TAB] 20 mg PO QDAY 04/04/13 09/03/18 10/29/14 Insulin Aspart Prot/Aspart(Nf) 40 units SUB-Q BID 01/15/16 09/03/18 Unknown [NovoLOG Mix 70/30 VIAL] Allergies Allergy/AdvReac Type Severity Reaction Status Date / Time morphine Allergy DECREASED Verified 05/31/16 08:38 HR shellfish derived Allergy Shortness Verified 05/31/16 08:38 of Breath ED Review of Systems ROS: Stated complaint: BLOOD CLOT (L) LEG/NUMBNESS/TINGLING Other details as noted in HPI Constitutional: denies: fever Eyes: denies: vision change ENT: denies: epistaxis Respiratory: shortness of breath Cardiovascular: denies: chest pain Gastrointestinal: denies: abdominal pain, nausea, melena, hematochezia Genitourinary: denies: as per HPI, dysuria Musculoskeletal: arthralgia, myalgia Skin: denies: lesions Neurological: numbness. denies: weakness, paresthesias, confusion Psychiatric: anxiety ED Past Medical Hx - Past Medical History Hx Hypertension: Yes Hx CVA: No Hx Heart Attack/AMI: No Hx Congestive Heart Failure: No Hx Diabetes: Yes Hx Deep Vein Thrombosis: No Hx Pulmonary Embolism: No Hx GERD: No Hx Liver Disease: No Hx Renal Disease: No Hx Sickle Cell Disease: No Hx Arthritis: No Hx Headaches / Migraines: No Hx Seizures: No Hx Kidney Stones: No Hx Psychiatric Treatment: No Hx Asthma: Yes Hx COPD: No Hx Tuberculosis: No Hx Dementia: No Hx HIV: No Additional medical history: enlarge heart,DVT - Surgical History Hx Coronary Stent: No Hx Open Heart Surgery: No Hx Pacemaker: No Hx Internal Defibrillator: No Hx Cholecystectomy: No Hx Appendectomy: No Hx Breast Surgery: No Additional Surgical History: TUBAL LIGATION. x3 - Social History Smoking Status: Never Smoker Substance Use Type: None - Medications Home Medications: Home Medications Medication Instructions Recorded Confirmed Last Taken Type Lisinopril [Zestril TAB] 20 mg PO QDAY 04/04/13 09/03/18 10/29/14 History Insulin Aspart Prot/Aspart(Nf) 40 units SUB-Q BID 01/15/16 09/03/18 Unknown History [NovoLOG Mix 70/30 VIAL] ED Physical Exam - General Limitations: No Limitations General appearance: alert, obese - Head Head exam: Present: atraumatic, normocephalic - Eye Eye exam: Present: normal appearance, EOMI. Absent: nystagmus - ENT ENT exam: Present: normal exam, normal orophraynx, mucous membranes moist, normal external ear exam - Neck Neck exam: Present: normal inspection, full ROM. Absent: tenderness, meningismus - Respiratory Respiratory exam: Present: normal lung sounds bilaterally. Absent: respiratory distress - Cardiovascular Cardiovascular Exam: Present: regular rate, normal rhythm, tachycardia, normal heart sounds. Absent: bradycardia, systolic murmur, diastolic murmur, rubs, gallop - GI/Abdominal GI/Abdominal exam: Present: soft. Absent: distended, tenderness, guarding, rebound, rigid, pulsatile mass - Extremities Exam Extremities exam: Present: normal inspection, full ROM, tenderness (there is right posterior leg tenderness. There is no redness, pus or streaking. There is no palpable cord. Compartments are soft.), other (2+ pulses noted in the bilateral upper, lower extremities. Compartments soft. No long bony tenderness. The pelvis is stable.). Absent: calf tenderness - Back Exam Back exam: Present: normal inspection, full ROM. Absent: tenderness, CVA tenderness (R), paraspinal tenderness, vertebral tenderness - Neurological Exam Neurological exam: Present: alert, oriented X3, other (Extraocular movements intact. Tongue midline. No facial droop. Facial sensation intact to light valentin ch in the V1, V2, V3 distribution bilaterally. 5 and 5 strength in 4 extremities.. Sensation is intact to light touch in 4 extremities.). Absent: motor sensory deficit - Psychiatric Psychiatric exam: Present: normal affect, normal mood - Skin Skin exam: Present: warm, dry, intact, normal color. Absent: rash ED Course Vital Signs 09/03/18 09/03/18 09/04/18 19:51 23:29 00:00 Temperature 98.8 F 98 F Pulse Rate 118 H 92 H 89 Respiratory 18 12 15 Rate Blood Pressure 128/84 136/94 Blood Pressure 148/94 [Left] O2 Sat by Pulse 98 100 96 Oximetry ED Medical Decision Making - Lab Data Result diagrams: 09/03/18 20:14 09/03/18 20:14 Vital Signs 09/03/18 09/03/18 09/04/18 19:51 23:29 00:00 Temperature 98.8 F 98 F Pulse Rate 118 H 92 H 89 Respiratory 18 12 15 Rate Blood Pressure 128/84 136/94 Blood Pressure 148/94 [Left] O2 Sat by Pulse 98 100 96 Oximetry Labs 09/03/18 09/03/18 09/03/18 20:14 20:14 20:14 WBC 9.4 RBC 3.86 Hgb 12.8 Hct 37.5 MCV 97 MCH 33 H MCHC 34 RDW 12.4 L Plt Count 175 Lymph % (Auto) 46.[address] [place] % (Auto) 7.8 H Eos % (Auto) 1.3 Baso % (Auto) 0.7 Lymph # 4.4 [place] # 0.7 Eos # 0.1 Baso # 0.1 Seg Neutrophils % 43.9 Seg Neutrophils # 4.1 PT 13.2 INR 0.95 APTT 29.3 D-Dimer 457.54 H Sodium 135 L Potassium 4.3 Chloride 97.6 L Carbon Dioxide 25 Anion Gap 17 BUN 11 Creatinine 0.7 Estimated GFR > 60 BUN/Creatinine Ratio 16 Glucose 330 H Calcium 9.7 - EKG Data -: EKG Interpreted by Me EKG shows normal: sinus rhythm, axis, intervals, QRS complexes, ST-T waves - EKG Data 09/04/18 02:32 EKG shows normal sinus, 86 bpm, normal axis, normal intervals, this EKG is not consistent with ST elevation myocardial infarction - Medical Decision Making differential diagnosis, including but not limited to: DVT, Cheng's cyst, musculoskeletal pain, obstructive sleep apnea, asthma, pulmonary hypertension, pulmonary and was, pneumonia Assessment and plan: 47-year-old female with right posterior leg pain. The patient is afebrile with reassuring vital signs with the exception of tachycardia. Her prior DVT was provoked by trauma and presumed surgery. Otherwise, reports no pulmonary embolus or DVT risk factors. On review of systems, the patient endorsed shortness of breath over the past 48 hours. Her history is erratic in this capacity. I strongly recommended definitive imaging study, either nuclear medicine VQ scan E, or CT angiogram of the chest to exclude/risk stratify for pulmonary embolus. I also recommended a right knee x-ray, an x-ray of the chest. Patient also was found to be hyperglycemic secondary to not taking her insulin. The patient initially was amenable to insulin therapy, fluids and pain medication, as well as the aforementioned imaging studies. However, subsequently, the patient refused all these interventions. I had extensive discussion with the patient, with her significant other as a witness, and addition to her nurse, INGA Gallardo The patient is now refusing all additional interventions. The patient is going to sign out AGAINST MEDICAL ADVICE. Extensive discussion had with the patient. The risks of leaving without a complete evaluation, including , disability, paralysis, permanent loss of quality of life were discussed with the patient. The patient is alert, oriented, clinically sober, she is free of distracting injury, and she exhibits decision-making capacity. She is able to articulate these risks in her own words. The patient will be offered subcutaneous Lovenox. An outpatient ultrasound study has been ordered. I will also refer the patient to outpatient pulmonology. The patient understands that she may return to the emergency room right away if and when she changes her mind about further evaluation. Critical care attestation.: If time is entered above; I have spent that time in minutes in the direct care of this critically ill patient, excluding procedure time. ED Disposition Clinical Impression: Shortness of breath, Right leg pain Disposition: LEFT AGAINST MED ADVICE Is pt being admited?: No Does the pt Need Aspirin: No Condition: Undetermined Additional Instructions: As we discussed, you have left the hospital/emergency room AGAINST MEDICAL ADVICE. By leaving, you risked , disability, paralysis, permanent loss of quality of life. The ER is open 24 hours a day, 7 days a week. It never closes. Please return to the emergency room right away if and when you change your mind. If you decide not to return to the emergency room, please follow-up with the listed physician referrals as soon as possible. please call [phone], listen for the prompts and select option 1 to speak to our staff, Available Monday through Monday, 7 am to 5 pm PM to assist you. Make certain to bring the ultrasound requisition form with you. Mckayla Massey are local sleep doctors Referrals: RHONDA ALVARADO MD [Primary Care Provider] - 3-5 Days COLETTE GOLDSTEIN MD [Staff Physician] - 3-[address] MD [Staff Physician] - 3-5 Days
[2018-09-04] MEDS ORDERED: PEPCID IV ONE (01:24)
[2018-09-04] MEDS ORDERED: SOLU-Medrol IV ONE (01:24)
[2018-09-04] MEDS ORDERED: BENADRYL IV ONE (01:24)
[2018-09-04] MEDS ORDERED: LOVENOX SUB-Q STA (02:30)
== END 2018-09-04 02:43 | disposition left against medical advice (07) ==
LOC: ED 18:17
DX: M79.604 Pain in right leg (principal); R06.02 Shortness of breath; Z86.718 Personal history of other venous thrombosis and embolism; I10 Essential (primary) hypertension; E11.9 Type 2 diabetes mellitus without complications; J45.909 Unspecified asthma, uncomplicated; Z98.51 Tubal ligation status; Z91.013 Allergy to seafood; Z88.5 Allergy status to narcotic agent; Z79.4 Long term (current) use of insulin
CPT/HCPCS: 36415; 80048; 85025; 85379; 85610; 85730; 93005; 93010; 96372; 99283; J1650; J1885; J2930; J7030

== ENCOUNTER 2018-09-04 11:43 | Outpatient (CLI) | payer MEDICARE ==
--- NOTE | 2018-09-04 13:59 | Vascular Lab Report ---
PROCEDURE: VL VENOUS DUPLEX LE BILAT TECHNIQUE: Duplex Doppler ultrasound examination of the venous system of the right leg and left leg HISTORY: LEG PAIN, SHORTNESS OF BREATH, ROUTINE COMPARISONS: June 23, 2017 FINDINGS: RIGHT LEG: Normal compressibility, vascular patency, and augmentation are present diffusely throughout the visua lized portion of the deep veins. No abnormal intraluminal echoes are visualized to suggest deep vein thrombus. IMPRESSION: No ultrasound evidence of DVT in the right leg LEFT LEG: Normal compressibility, vascular patency, and augmentation are present diffusely throughout the visua lized portion of the deep veins. No abnormal intraluminal echoes are visualized to suggest deep vein thrombus. IMPRESSION: No ultrasound evidence of DVT in the left leg This document is electronically signed by Clyde Fox MD., September 04 2018 01:57:18 PM ET
== END 2018-09-04 11:44 | disposition home or self-care (01) ==
LOC: VAS 11:43
PROVIDERS: ATTEND Emergency Medicine
DX: M79.604 Pain in right leg (principal); R06.02 Shortness of breath; I10 Essential (primary) hypertension; J45.909 Unspecified asthma, uncomplicated; Z90.710 Acquired absence of both cervix and uterus
CPT/HCPCS: 93970

== ENCOUNTER 2019-03-15 18:11 | Emergency (ER) | payer MEDICARE ==
[2019-03-15 18:57] VITALS: BP 144/106
--- NOTE | 2019-03-15 19:03 | Event Note ---
ED Screening Note Date of service: 03/15/19 Time: 18:55 ED Screening Note: Patient reports low back pain radiating to right leg for 2 days. Patient reports chronic low back pain. States abdominal pain started today with movement. This initial assessment/diagnostic orders/clinical plan/treatment(s) is/are subject to change based on patients health status, clinical progression and re- assessment by fellow clinical providers in the ED. Further treatment and workup at subsequent clinical providers discretion. Patient/guardian urged not to elope from the ED as their condition may be serious if not clinically assessed and managed. Initial orders include: Labs
[2019-03-15] MEDS ORDERED: KETOROLAC 30 MG/1 ML INJ IM ONE (20:07)
[2019-03-15 20:12] LABS: Basophils # (Auto) 0.1 K/mm3 (0.0-0.1); Basophils % (Auto) 0.6 % (0.0-1.8); Eosinophils # (Auto) 0.1 K/mm3 (0.0-0.4); Eosinophils % (Auto) 1.1 % (0.0-4.3); Hematocrit 37.7 % (30.3-42.9); Hemoglobin 12.9 gm/dl (10.1-14.3); Lymphocytes # (Auto) 4.3 K/mm3 (1.2-5.4); Lymphocytes % (Auto) 44.8 % (13.4-35.0); Mean Corpuscular HGB Conc 34 % (30-34); Mean Corpuscular Volume 96 fl (79-97); Monocytes # (Auto) 0.8 K/mm3 (0.0-0.8); Monocytes % (Auto) 7.9 % (0.0-7.3); Platelet Count 167 K/mm3 (140-440); Red Blood Count 3.91 M/mm3 (3.65-5.03); Red Cell Distribution Width 12.3 % (13.2-15.2)
[2019-03-15 20:31] LABS: Bilirubin,Urine NEG (Negative); Blood,Urine NEG (Negative); Color,Urine Straw (Yellow); Protein,Urine <15 mg/dL mg/dL (Negative); Urobilinogen,Urine < 2.0 mg/dL (<2.0); WBC,Urine < 1.0 /HPF (0.0-6.0)
[2019-03-15 20:36] LABS: Alanine Aminotransferase 14 units/L (7-56); Albumin 4.2 g/dL (3.9-5); BUN/Creatinine Ratio 14; Blood Urea Nitrogen 7 mg/dL (7-17); Calcium 9.2 mg/dL (8.4-10.2); Hemolysis Index 5
--- NOTE | 2019-03-15 20:52 | Emergency Department Report ---
ED Back Pain/Injury HPI - General Chief Complaint: Back Pain/Injury Stated Complaint: SEVERE LOWER BACK/RT SIDE PAIN Time Seen by Provider: 03/15/19 18:55 Source: patient Limitations: No Limitations - History of Present Illness Initial Comments: this is a 48 y/o aaf with hx of chronic back pain , dmII, and htn, who presents for back pain radiating to right leg for past 6 months, states she is out of pain medication. pt denies new fall injury or trauma. no dysuria , frequency or urgency. no loss or decrease in bowel or bladder function. MD Complaint: back pain Onset/Timin -: month(s) Similar Symptoms Previously: Yes Place: home Radiation: right leg Severity: moderate Severity scale (0 -10): 5 Quality: sharp Consistency: intermittent Improves With: none Worsens With: movement, sitting upright, walking Context: turning/twisting, bending Associated Symptoms: denies: numbness, difficulty walking, difficulty urinating, incontinence, fever/chills - Related Data Home Medications Medication Instructions Recorded Confirmed Last Taken Lisinopril [Zestril TAB] 20 mg PO QDAY 04/04/13 09/03/18 10/29/14 Insulin Aspart Prot/Aspart(Nf) 40 units SUB-Q BID 01/15/16 09/03/18 Unknown [NovoLOG Mix 70/30 VIAL] Previous Rx's Medication Instructions Recorded Last Taken Type Cyclobenzaprine [Flexeril] 10 mg PO TID PRN #30 tablet 03/15/19 Unknown Rx Menthol/Camphor [[place] 1 applicatio TP QID PRN #1 tube 03/15/19 Unknown Rx Ointment] Naproxen 500 mg PO BID PRN #30 tablet 03/15/19 Unknown Rx Allergies Allergy/AdvReac Type Severity Reaction Status Date / Time morphine Allergy DECREASED Verified 05/31/16 08:38 HR shellfish derived Allergy Shortness Verified 05/31/16 08:38 of Breath ED Review of Systems ROS: Stated complaint: SEVERE LOWER BACK/RT SIDE PAIN Other details as noted in HPI Constitutional: denies: chills, fever Eyes: denies: eye pain, eye discharge, vision change ENT: denies: ear pain, throat pain Respiratory: denies: cough, shortness of breath, wheezing Cardiovascular: denies: chest pain, palpitations Endocrine: no symptoms reported Gastrointestinal: denies: abdominal pain, nausea, diarrhea Genitourinary: as per HPI Musculoskeletal: back pain, arthralgia, myalgia Skin: denies: rash, lesions Neurological: denies: headache, weakness, paresthesias Psychiatric: denies: anxiety, depression Hematological/Lymphatic: as per HPI ED Past Medical Hx - Past Medical History Hx Hypertension: Yes Hx CVA: No Hx Heart Attack/AMI: No Hx Congestive Heart Failure: No Hx Diabetes: Yes Hx Deep Vein Thrombosis: No Hx Pulmonary Embolism: No Hx GERD: No Hx Liver Disease: No Hx Renal Disease: No Hx Sickle Cell Disease: No Hx Arthritis: No Hx Headaches / Migraines: No Hx Seizures: No Hx Kidney Stones: No Hx Psychiatric Treatment: No Hx Asthma: Yes Hx COPD: No Hx Tuberculosis: No Hx Dementia: No Hx HIV: No Additional medical history: enlarge heart,DVT - Surgical History Hx Coronary Stent: No Hx Open Heart Surgery: No Hx Pacemaker: No Hx Internal Defibrillator: No Hx Cholecystectomy: No Hx Appendectomy: No Hx Breast Surgery: No Additional Surgical History: TUBAL LIGATION. x3 - Social History Smoking Status: Never Smoker Substance Use Type: None - Medications Home Medications: Home Medications Medication Instructions Recorded Confirmed Last Taken Type Lisinopril [Zestril TAB] 20 mg PO QDAY 04/04/13 09/03/18 10/29/14 History Insulin Aspart Prot/Aspart(Nf) 40 units SUB-Q BID 01/15/16 09/03/18 Unknown History [NovoLOG Mix 70/30 VIAL] Cyclobenzaprine [Flexeril] 10 mg PO TID PRN #30 tablet 03/15/19 Unknown Rx Menthol/Camphor [[place] 1 applicatio TP QID PRN #1 tube 03/15/19 Unknown Rx Ointment] Naproxen 500 mg PO BID PRN #30 tablet 03/15/19 Unknown Rx ED Physical Exam - General Limitations: No Limitations General appearance: alert, in no apparent distress - Head Head exam: Present: atraumatic, normocephalic - Eye Eye exam: Present: normal appearance, PERRL, EOMI Pupils: Present: normal accommodation - ENT ENT exam: Present: mucous membranes moist - Neck Neck exam: Present: normal inspection, full ROM. Absent: tenderness - Respiratory Respiratory exam: Present: normal lung sounds bilaterally. Absent: respiratory distress, wheezes, stridor, chest wall tenderness - Cardiovascular Cardiovascular Exam: Present: regular rate, normal rhythm, normal heart sounds. Absent: systolic murmur, diastolic murmur, rubs, gallop - GI/Abdominal GI/Abdominal exam: Present: soft, normal bowel sounds. Absent: distended, tenderness, bruit, hernia - Rectal Rectal exam: Present: deferred - Extremities Exam Extremities exam: Present: normal inspection, full ROM, normal capillary refill. Absent: tenderness, pedal edema - Back Exam Back exam: Present: normal inspection, full ROM, tenderness (no posterior vertebral point tenderness rom intact unrestricted at this time. ), muscle spasm, paraspinal tenderness. Absent: CVA tenderness (R), CVA tenderness (L), vertebral tenderness, rash noted - Expanded Back Exam Expanded Back exam: Absent: saddle anesthesia Back exam: Sciatic Notch Tenderness: Right, Positive Straight Leg Raise: Right - Neurological Exam Neurological exam: Present: alert, oriented X3, CN II-XII intact, normal gait, reflexes normal - Psychiatric Psychiatric exam: Present: normal affect, normal mood - Skin Skin exam: Present: warm, dry, intact, normal color. Absent: rash ED Course Vital Signs 03/15/19 18:55 Temperature 98.6 F Pulse Rate 99 H Respiratory 18 Rate Blood Pressure 144/106 O2 Sat by Pulse 98 Oximetry ED Medical Decision Making - Lab Data Result diagrams: 03/15/19 20:03 03/15/19 20:03 Labs 03/15/19 03/15/19 03/15/19 20:03 20:03 20:08 WBC 9.6 RBC 3.91 Hgb 12.9 Hct 37.7 MCV 96 MCH 33 H MCHC 34 RDW 12.3 L Plt Count 167 Lymph % (Auto) 44.8 H [place] % (Auto) 7.9 H Eos % (Auto) 1.1 Baso % (Auto) 0.6 Lymph # 4.3 [place] # 0.8 Eos # 0.1 Baso # 0.1 Seg Neutrophils % 45.6 Seg Neutrophils # 4.4 Sodium 134 L Potassium 4.2 Chloride 100.4 Carbon Dioxide 21 L Anion Gap 17 BUN 7 Creatinine 0.5 L Estimated GFR > 60 BUN/Creatinine Ratio 14 Glucose 293 H Calcium 9.2 Total Bilirubin 0.20 AST 14 ALT 14 Alkaline Phosphatase 76 Total Protein 7.7 Albumin 4.2 Albumin/Globulin Ratio 1.2 Lipase 24 Urine Color Straw Urine Turbidity Clear Urine pH 7.0 Ur Specific [place] 1.025 Urine Protein <15 mg/dl Urine Glucose (UA) >=500 Urine Ketones Tr Urine Blood Neg Urine Nitrite Neg Urine Bilirubin Neg Urine Urobilinogen < 2.0 Ur Leukocyte Esterase Neg Urine WBC (Auto) < 1.0 Urine RBC (Auto) 1.0 U Epithel Cells (Auto) < 1.0 - Medical Decision Making this ia acute on chronic low back pain, plan: dc to home in stable contionl. nsaid muscl relaxant, analgesic balm, moist heat therapy follow up with pcp in 2-3 days . Critical care attestation.: If time is entered above; I have spent that time in minutes in the direct care of this critically ill patient, excluding procedure time. ED Disposition Clinical Impression: Low back strain Qualifiers: Encounter type: initial encounter Qualified Code(s): S39.012A - Strain of muscle, fascia and tendon of lower back, initial encounter Chronic back pain Qualifiers: Back pain location: low back pain Back pain laterality: right Sciatica presence: with sciatica Sciatica laterality: sciatica of right side Qualified Code(s): M54.41 - Lumbago with sciatica, right side; G89.29 - Other chronic pain Disposition: DC-01 TO HOME OR SELFCARE Is pt being admited?: No Does the pt Need Aspirin: No Condition: Stable Instructions: Muscle Strain (ED), Chronic Back Pain (ED), Low Back Strain (ED) Prescriptions: Cyclobenzaprine [Flexeril] 10 mg PO TID PRN #30 tablet PRN Reason: Muscle Spasm Naproxen 500 mg PO BID PRN #30 tablet PRN Reason: pain Menthol/Camphor [[place] Ointment] 1 applicatio TP QID PRN #1 tube PRN Reason: pain Referrals: ANETA WHITMORE MD [Staff Physician] - 3-5 Days Forms: Work/School Release Form(ED) Time of Disposition: 21:02
== END 2019-03-15 21:05 | disposition home or self-care (01) ==
LOC: ED 18:11
DX: S39.012A Strain of muscle, fascia and tendon of lower back, initial encounter (principal); G89.29 Other chronic pain; E11.9 Type 2 diabetes mellitus without complications; J45.909 Unspecified asthma, uncomplicated; I10 Essential (primary) hypertension; Z79.4 Long term (current) use of insulin; Z79.899 Other long term (current) drug therapy; Z88.5 Allergy status to narcotic agent; Z91.018 Allergy to other foods; Z98.51 Tubal ligation status; X50.1XXA Overexertion from prolonged static or awkward postures, initial encounter; Y93.89 Activity, other specified; Y92.098 Other place in other non-institutional residence as the place of occurrence of the external cause; Y99.8 Other external cause status
CPT/HCPCS: 36415; 80053; 81001; 83690; 85025; 96372; 99283; J1885

== ENCOUNTER 2019-04-06 09:14 | Observation (INO) | payer MEDICARE ==
[2019-04-06] MEDS ORDERED: IPRATROPIUM/ALBUTEROL SULFATE 3 ML AMPUL.NEB IH ONE (10:26)
[2019-04-06] MEDS ORDERED: ACETAMINOPHEN 325 MG TAB PO ONE (10:30)
--- NOTE | 2019-04-06 10:51 | XRay Report ---
CHEST 2 VIEWS INDICATION / CLINICAL INFORMATION: cough x 2 weeks productive. COMPARISON: 04/19/2018. FINDINGS: SUPPORT DEVICES: None. HEART / MEDIASTINUM: No significant abnormality. LUNGS / PLEURA: No significant pulmonary or pleural abnormality. No pneumothorax. ADDITIONAL FINDINGS: No significant additional findings. IMPRESSION: 1. No acute findings. Signer Name: Asher Perez MD Signed: 04/06/2019 10:46 AM Workstation Name: [id number]
[2019-04-06 11:14] LABS: Hematocrit 39.4 % (30.3-42.9); Hemoglobin 13.3 gm/dl (10.1-14.3); Mean Corpuscular HGB Conc 34 % (30-34); Mean Corpuscular Volume 97 fl (79-97); Platelet Count 181 K/mm3 (140-440); Red Blood Count 4.06 M/mm3 (3.65-5.03); Red Cell Distribution Width 12.3 % (13.2-15.2)
[2019-04-06 11:25] LABS: BUN/Creatinine Ratio 12; Blood Urea Nitrogen 6 mg/dL (7-17); Calcium 9.3 mg/dL (8.4-10.2); Hemolysis Index 11
--- NOTE | 2019-04-06 11:55 | Emergency Department Report ---
ED General Adult HPI - General Chief complaint: Upper Respiratory Infection Stated complaint: CP/HEADACHE/COUGH Source: patient Mode of arrival: Ambulatory Limitations: No Limitations - History of Present Illness Initial comments: 48 yo female c/o productive cough x 2 weeks, chest pain worsens with cough. She denies fever, nausea and vomiting. PMH of IDDM, Asthma and DVT 1 year ago currently taking Elliqus. -: week(s) (2 weeks) Location: head Severity scale (0 -10): 3 Associated Symptoms: chest pain, cough, headaches, loss of appetite. denies: malaise, nausea/vomiting, shortness of breath, syncope, weakness Treatments Prior to Arrival: none - Related Data Home Medications Medication Instructions Recorded Confirmed Last Taken Lisinopril [Zestril TAB] 20 mg PO QDAY 04/04/13 09/03/18 10/29/14 Insulin Aspart Prot/Aspart(Nf) 40 units SUB-Q BID 01/15/16 09/03/18 Unknown [NovoLOG Mix 70/30 VIAL] Previous Rx's Medication Instructions Recorded Last Taken Type Cyclobenzaprine [Flexeril] 10 mg PO TID PRN #30 tablet 03/15/19 Unknown Rx Menthol/Camphor [[place] 1 applicatio TP QID PRN #1 tube 03/15/19 Unknown Rx Ointment] Naproxen 500 mg PO BID PRN #30 tablet 03/15/19 Unknown Rx Allergies Allergy/AdvReac Type Severity Reaction Status Date / Time morphine Allergy DECREASED Verified 05/31/16 08:38 HR shellfish derived Allergy Shortness Verified 05/31/16 08:38 of Breath ED Review of Systems ROS: Stated complaint: CP/HEADACHE/COUGH Other details as noted in HPI Comment: All other systems reviewed and negative Constitutional: denies: fever Respiratory: cough. denies: wheezing Cardiovascular: chest pain (worsens with cough comes and goes). denies: palpita tions, dyspnea on exertion Gastrointestinal: denies: abdominal pain, nausea, vomiting, diarrhea ED Past Medical Hx - Past Medical History Previous Medical History?: Yes Hx Hypertension: Yes Hx CVA: No Hx Heart Attack/AMI: No Hx Congestive Heart Failure: No Hx Diabetes: Yes Hx Deep Vein Thrombosis: No Hx Pulmonary Embolism: No Hx GERD: No Hx Liver Disease: No Hx Renal Disease: No Hx Sickle Cell Disease: No Hx Arthritis: No Hx Headaches / Migraines: No Hx Seizures: No Hx Kidney Stones: No Hx Psychiatric Treatment: No Hx Asthma: Yes Hx COPD: No Hx Tuberculosis: No Hx Dementia: No Hx HIV: No Additional medical history: enlarge heart,DVT - Surgical History Past Surgical History?: Yes Hx Coronary Stent: No Hx Open Heart Surgery: No Hx Pacemaker: No Hx Internal Defibrillator: No Hx Cholecystectomy: No Hx Appendectomy: No Hx Breast Surgery: No Additional Surgical History: TUBAL LIGATION. x3 - Social History Smoking Status: Never Smoker Substance Use Type: Alcohol - Medications Home Medications: Home Medications Medication Instructions Recorded Confirmed Last Taken Type Lisinopril [Zestril TAB] 20 mg PO QDAY 04/04/13 09/03/18 10/29/14 History Insulin Aspart Prot/Aspart(Nf) 40 units SUB-Q BID 01/15/16 09/03/18 Unknown History [NovoLOG Mix 70/30 VIAL] Cyclobenzaprine [Flexeril] 10 mg PO TID PRN #30 tablet 03/15/19 Unknown Rx Menthol/Camphor [[place] 1 applicatio TP QID PRN #1 tube 03/15/19 Unknown Rx Ointment] Naproxen 500 mg PO BID PRN #30 tablet 03/15/19 Unknown Rx ED Physical Exam - General Limitations: No Limitations General appearance: alert, in no apparent distress - Head Head exam: Present: atraumatic - Eye Eye exam: Present: normal appearance. Absent: scleral icterus - ENT ENT exam: Present: normal exam, normal orophraynx, mucous membranes moist, TM's normal bilaterally - Neck Neck exam: Present: normal inspection, full ROM. Absent: lymphadenopathy - Respiratory Respiratory exam: Present: normal lung sounds bilaterally, decreased breath sounds - Cardiovascular Cardiovascular Exam: Present: regular rate, normal rhythm, normal heart sounds - GI/Abdominal GI/Abdominal exam: Present: soft. Absent: distended, tenderness, guarding - Back Exam Back exam: Present: normal inspection - Neurological Exam Neurological exam: Present: alert, oriented X3 - Psychiatric Psychiatric exam: Present: normal affect - Skin Skin exam: Present: warm, dry, intact, normal color ED Course Vital Signs 04/06/19 04/06/19 04/06/19 09:20 10:58 13:45 Temperature 98 F 98.7 F Pulse Rate 98 H 68 Pulse Rate [ 96 H Anterior Bilateral Throughout] Pulse Rate [ 96 H Anterior Bilateral] Respiratory 18 14 Rate Respiratory 20 Rate [Anterior Bilateral Throughout] Respiratory 20 Rate [Anterior Bilateral] Blood Pressure 140/90 Blood Pressure 137/82 [Right] O2 Sat by Pulse 99 100 Oximetry - Reevaluation(s) Reevaluation #1: Discussed plan of care with Dr BURTON 04/06/19 14:16 Pt in no distress. Troponin x 2 negative Repeat EKG no changes from first Sinus rhythm rate 88 Pt is allergic to idodine waiting for VQ SCAN to be completed. Reevaluation #2: 04/06/19 16:11 VQ Scan negative study discuss with Dr. Burton. Plan of care is to notify Hospitalist Dr. Noyola for admission Dr. Noyola notified ED Medical Decision Making - Lab Data Result diagrams: 04/06/19 10:46 04/06/19 10:46 - EKG Data EKG shows normal: sinus rhythm Rate: normal - EKG Data When compared to previous EKG there are: no significant change, other (previous EKG sinus tachycardia on 04/25) - Radiology Data Radiology results: report reviewed FINDINGS: SUPPORT DEVICES: None. HEART / MEDIASTINUM: No significant abnormality. LUNGS / PLEURA: No significant pulmonary or pleural abnormality. No pneumothorax. ADDITIONAL FINDINGS: No significant additional findings. IMPRESSION: 1. No acute findings. Critical Care Time: No Critical care attestation.: If time is entered above; I have spent that time in minutes in the direct care of this critically ill patient, excluding procedure time. ED Disposition Clinical Impression: Cough Chest pain Qualifiers: Chest pain type: chest pain on breathing Qualified Code(s): R07.1 - Chest pain on breathing; R07.81 - Pleurodynia Disposition: DC/TX-02 [facility] IP Is pt being admited?: Yes Does the pt Need Aspirin: No Condition: Stable
--- NOTE | 2019-04-06 15:36 | Nuclear Medicine Report ---
Radionuclide ventilation/perfusion lung scan HISTORY: Chest pain. Elevated d-dimer. COMPARISON: None FINDINGS: Perfusion images, obtained following intravenous injection of 4.95 mCi technetium MAA, show homogeneo us uptake throughout both lungs, with no significant filling defects. Ventilation images, made following inhalation of 15.19 mCi 133 xenon, also show homogeneous uptake th roughout both lungs, with no significant air trapping. IMPRESSION: Negative study. Low probability of pulmonary embolus. Signer Name: Jovon Aguayo MD Signed: 04/06/2019 3:31 PM Workstation Name: [id number]
[2019-04-06] MEDS ORDERED: ONDANSETRON 4 MG/2 ML INJ IV PRN (16:13)
[2019-04-06] MEDS ORDERED: ALBUTEROL 2.5 MG/3 ML NEBU IH PRN (16:13)
[2019-04-06] MEDS ORDERED: ACETAMINOPHEN 325 MG TAB PO PRN (16:13)
[2019-04-06] MEDS ORDERED: MENTHOL TP PRN (16:14)
[2019-04-06] MEDS ORDERED: CYCLOBENZAPRINE 10 MG TAB PO PRN (16:14)
[2019-04-06] MEDS ORDERED: NAPROXEN 500 MG TAB PO PRN (16:14)
[2019-04-06] MEDS ORDERED: CAMPHOR TP PRN (16:14)
--- NOTE | 2019-04-06 16:16 | History and Physical Report ---
History of Present Illness Chief complaint: My chest hurts, and im coughing History of present illness: 48 YO Female with HTN, DM, Asthma, DVT on Therapeutic Anticoagulation presents to ED for evaluation. Pt states that she has experienced pain in her chest over the past 2 weeks, and well as productive cough of clear sputum. Pt states that her pain is 4/10, intermittent, associated with shortness of breath. Pt transported to [facility] via private vehicle. Pt seen and evaluated in ED and found to have chest pain, as well as bronchitis. Pt placed in observation status and admitted to medical floor. Cardiology team consulted in ED. Pt denies fever, chills, malaise, nausea/vomiting/diarrhea, syncope, weakness, or recent ill contacts. No prior admission no review. All listed medication reconciled at time of admission. Past History Past Medical History: other (See hpi) Past Surgical History: , Other (Tubal ligation. ) Social history: single. denies: smoking, alcohol abuse, prescription drug abuse Family history: diabetes, hypertension Medications and Allergies Allergies Allergy/AdvReac Type Severity Reaction Status Date / Time apple Allergy Severe Hives Verified 04/06/19 18:27 morphine Allergy DECREASED Verified 05/31/16 08:38 HR shellfish derived Allergy Shortness Verified 05/31/16 08:38 of Breath Home Medications Medication Instructions Recorded Confirmed Last Taken Type Lisinopril [Zestril TAB] 20 mg PO QDAY 04/04/13 09/03/18 10/29/14 History Insulin Aspart Prot/Aspart(Nf) 40 units SUB-Q BID 01/15/16 09/03/18 Unknown History [NovoLOG Mix 70/30 VIAL] Cyclobenzaprine [Flexeril] 10 mg PO TID PRN #30 tablet 03/15/19 Unknown Rx Menthol/Camphor [[place] 1 applicatio TP QID PRN #1 tube 03/15/19 Unknown Rx Ointment] Naproxen 500 mg PO BID PRN #30 tablet 03/15/19 Unknown Rx Apixaban [Eliquis] 2.5 mg PO QPM 04/06/19 04/06/19 Unknown History Insulin NPH Hum/Reg Insulin Hm 40 unit SQ BID 04/06/19 04/06/19 Unknown History [HumuLIN 70-30 Vial] Linagliptin [Tradjenta] 10 mg PO QDAY 04/06/19 04/06/19 Unknown History Active Meds: Active Medications Acetaminophen (Tylenol) 650 mg PO Q4H PRN PRN Reason: Pain MILD(1-3)/Fever >100.5/SANTOS Albuterol (Proventil) 2.5 mg IH Q4HRT PRN PRN Reason: Shortness Of Breath Cyclobenzaprine HCl (Flexeril) 10 mg PO TID PRN PRN Reason: Muscle Spasm Lisinopril (Zestril) 20 mg PO QDAY [facility] Miscellaneous Medication (Menthol/Camphor [[place] Ointment]) 1 applicatio TP QID PRN PRN Reason: pain Naproxen (Naproxen) 500 mg PO BID PRN PRN Reason: pain Ondansetron HCl (Zofran) 4 mg IV Q8H PRN PRN Reason: Nausea And Vomiting Sodium Chloride (Sodium Chloride Flush Syringe 10 Ml) 10 ml IV BID [facility] Sodium Chloride (Sodium Chloride Flush Syringe 10 Ml) 10 ml IV PRN PRN PRN Reason: LINE FLUSH Review of Systems Constitutional: no weight loss, no weight gain, no fever, no chills Ears, nose, mouth and throat: nasal congestion, no ear pain, no ear discharge, no decreased hearing, no nose pain, no sinus pressure, no sinus pain Breasts: no change in shape, no swelling, no mass Cardiovascular: chest pain, no orthopnea, no palpitations, no edema, no syncope, no dyspnea on exertion Respiratory: cough, no excessive sputum, no hemoptysis Gastrointestinal: no nausea, no vomiting, no diarrhea, no constipation Genitourinary Female: no pelvic pain, no flank pain, no menorrhagia, no dysuria, no urinary frequency, no stress incontinence Rectal: no pain, no incontinence, no bleeding Musculoskeletal: no neck stiffness, no shooting arm pain, no arm numbness/tingling, no low back pain, no shooting leg pain Integumentary: no rash, no pruritis, no redness, no sores, no wounds Neurological: no paralysis, no weakness, no parathesias, no tingling, no tremors Psychiatric: no memory loss, no sleep disturbances, no hypersomnia, no change in appetite Endocrine: no cold intolerance, no heat intolerance, no polyphagia, no excessive thirst, no polydipsia, no nocturia, no excessive sweating Hematologic/Lymphatic: no easy bruising, no easy bleeding, no lymphadenopathy Allergic/Immunologic: no urticaria, no wheezing, no persistent infections, no angioedema Exam - Constitutional Vitals: Temp Pulse Resp BP Pulse Ox 98.7 F 68 14 137/82 100 04/06/19 13:45 04/06/19 13:45 04/06/19 13:45 04/06/19 13:45 04/06/19 13:45 General appearance: Present: mild distress - EENT Eyes: Present: PERRL ENT: hearing intact, clear oral mucosa - Neck Neck: Present: supple, normal ROM - Respiratory Respiratory effort: normal Respiratory: bilateral: CTA - Cardiovascular Heart Sounds: Present: S1 & S2. Absent: rub, click - Extremities Extremities: pulses symmetrical, No edema Peripheral Pulses: within normal limits - Abdominal General gastrointestinal: Present: soft, non-tender, non-distended, normal bowel sounds Female genitourinary: Present: normal - Integumentary Integumentary: Present: clear, warm, dry - Musculoskeletal Musculoskeletal: gait normal, strength equal bilaterally - Psychiatric Psychiatric: appropriate mood/affect, intact judgment & insight - Neurologic Neurologic: CNII-XII intact, moves all extremities Results - Labs CBC & Chem 7: 04/06/19 10:46 04/06/19 10:46 Labs: Abnormal lab results 04/06/19 04/06/19 04/06/19 Range/Units 10:46 10:46 11:42 MCH 33 H (28-32) pg RDW 12.3 L (13.2-15.2) % D-Dimer 339.81 H (0-234) ng/mlDDU Carbon Dioxide 21 L (22-30) mmol/L BUN 6 L (7-17) mg/dL Creatinine 0.5 L (0.7-1.2) mg/dL Glucose 174 H (65-100) mg/dL Assessment and Plan - Patient Problems (1) Angina at rest Current Visit: Yes Status: Acute Plan to address problem: Remote telemetry, serial cardiac enzymes, bnp, cardiology consulted in ED. (2) Bronchitis Current Visit: Yes Status: Acute Plan to address problem: steroid therapy, antihistamine therapy, empiric antibiotic therapy (3) Diabetes Current Visit: Yes Status: Acute Plan to address problem: ada diet, insulin, accu check, hypoglycemia protocol (4) HTN (hypertension) Current Visit: Yes Status: Acute Qualifiers: Hypertension type: essential hypertension Qualified Code(s): I10 - Essential (primary) hypertension Plan to address problem: monitor, BP q shift, continue medical management. (5) History of deep vein thrombosis Current Visit: Yes Status: Acute Plan to address problem: continue therapeutic anticoagulation. (6) DVT prophylaxis Current Visit: Yes Status: Acute Plan to address problem: SCD to BLE while in bed,
[2019-04-06] MEDS ORDERED: DEXTROSE 50% IN WATER (25GM) 50 ML SYRINGE IV PRN (18:17)
[2019-04-06] MEDS: LISINOPRIL 20 MG TAB PO SCH (18:42)
[2019-04-06] MEDS ORDERED: HYDROcodone/HOMATROPINE 5-1.5MG /5 ML ORAL LIQD UNIT DOSE PO PRN (20:54)
[2019-04-06] MEDS: APIXABAN 2.5 MG TAB PO SCH (21:32)
[2019-04-06] MEDS: INSULIN LISPRO 100 UNIT/ML SUB-Q SCH (23:44)
--- NOTE | 2019-04-07 08:41 | Consultation ---
History of Present Illness Consult date: 04/07/19 Consult reason: chest pain History of present illness: Impression Atypical chest pain, occurs mostly with cough No prior h/o CAD Cardiac enzymes and NT-proBNP negative HTN DM Asthma DVT Plan Advise Nuclear stress imaging in AM to stratify risk. Past History Past Medical History: diabetes, hypertension, other (See hpi) Past Surgical History: , Other (Tubal ligation. ) Social history: single. denies: smoking, alcohol abuse, prescription drug abuse Family history: diabetes, hypertension Medications and Allergies Allergies Allergy/AdvReac Type Severity Reaction Status Date / Time apple Allergy Severe Hives Verified 04/06/19 18:27 morphine Allergy DECREASED Verified 05/31/16 08:38 HR shellfish derived Allergy Shortness Verified 05/31/16 08:38 of Breath Home Medications Medication Instructions Recorded Confirmed Last Taken Type Lisinopril [Zestril TAB] 20 mg PO QDAY 04/04/13 04/07/19 10/29/14 History Insulin Aspart Prot/Aspart(Nf) 40 units SUB-Q BID 01/15/16 09/03/18 Unknown His tory [NovoLOG Mix 70/30 VIAL] Cyclobenzaprine [Flexeril] 10 mg PO TID PRN #30 tablet 03/15/19 04/07/19 Unknown Rx Menthol/Camphor [[place] 1 applicatio TP QID PRN #1 tube 03/15/19 04/07/19 Unknown Rx Ointment] Naproxen 500 mg PO BID PRN #30 tablet 03/15/19 04/07/19 Unknown Rx Apixaban [Eliquis] 2.5 mg PO QPM 04/06/19 04/06/19 Unknown History Insulin NPH Hum/Reg Insulin Hm 40 unit SQ BID 04/06/19 04/06/19 Unknown History [HumuLIN 70-30 Vial] Linagliptin [Tradjenta] 10 mg PO QDAY 04/06/19 04/06/19 Unknown History Active Meds: Active Medications Acetaminophen (Tylenol) 650 mg PO Q4H PRN PRN Reason: Pain MILD(1-3)/Fever >100.5/SANTOS Albuterol (Proventil) 2.5 mg IH Q4HRT PRN PRN Reason: Shortness Of Breath Apixaban (Eliquis) 2.5 mg PO Q12HR JORDAN Last Admin: 04/06/19 21:32 Dose: 2.5 mg Documented by: Cyclobenzaprine HCl (Flexeril) 10 mg PO TID PRN PRN Reason: Muscle Spasm Dextrose (D50w (25gm) Syringe) 50 ml IV Q30MIN PRN; Protocol PRN Reason: Hypoglycemia Hydrocodone Bit/Homatropine Methylb (Hydromet) 10 ml PO Q6H PRN PRN Reason: Cough Last Admin: 04/07/19 06:56 Dose: 10 ml Documented by: Insulin Human Lispro (Humalog) 0 unit SUB-Q ACHS [facility]; Protocol Last Admin: 04/06/19 23:44 Dose: 4 unit Documented by: Lisinopril (Zestril) 20 mg PO QDAY [facility] Last Admin: 04/06/19 18:42 Dose: 20 mg Documented by: Miscellaneous Medication (Menthol/Camphor [[place] Ointment]) 1 applicatio TP QID PRN PRN Reason: pain Naproxen (Naproxen) 500 mg PO BID PRN PRN Reason: pain Ondansetron HCl (Zofran) 4 mg IV Q8H PRN PRN Reason: Nausea And Vomiting Sodium Chloride (Sodium Chloride Flush Syringe 10 Ml) 10 ml IV BID [facility] Last Admin: 04/06/19 21:32 Dose: 10 ml Documented by: Sodium Chloride (Sodium Chloride Flush Syringe 10 Ml) 10 ml IV PRN PRN PRN Reason: LINE FLUSH Review of Systems All systems: negative (stated in impression) Physical Examination Vital Signs Temp Pulse Resp BP Pulse Ox 98 F 98 H 18 140/90 99 04/06/19 09:20 04/06/19 09:20 04/06/19 09:20 04/06/19 09:20 04/06/19 09:20 General appearance: no acute distress HEENT: Positive: PERRL, EOMI Neck: Positive: neck supple Cardiac: Positive: Reg Rate and Rhythm, S1/S2. Negative: S3 Lungs: Positive: Normal Exam Neuro: Positive: Grossly Intact Abdomen: Positive: Soft. Negative: Pulsations/Bruits Skin: Positive: Clear Extremities: Present: normal Results 04/06/19 10:46 04/06/19 10:46 CBC 04/06/19 Range/Units 10:46 WBC 7.7 (4.5-11.0) K/mm3 RBC 4.06 (3.65-5.03) M/mm3 Hgb 13.3 (10.1-14.3) gm/dl Hct 39.4 (30.3-42.9) % Plt Count 181 (140-440) K/mm3 Comprehensive Metabolic Panel 04/06/19 Range/Units 10:46 Sodium 137 (137-145) mmol/L Potassium 3.6 (3.6-5.0) mmol/L Chloride 99.5 (98-107) mmol/L Carbon Dioxide 21 L (22-30) mmol/L BUN 6 L (7-17) mg/dL Creatinine 0.5 L (0.7-1.2) mg/dL Glucose 174 H (65-100) mg/dL Calcium 9.3 (8.4-10.2) mg/dL
[2019-04-07] MEDS: INSULIN NPH/REGULAR 70/30 INJ SUB-Q SCH ×2 (09:00→17:12)
[2019-04-07] MEDS: INSULIN LISPRO 100 UNIT/ML SUB-Q SCH ×4 (09:13→22:45)
[2019-04-07] MEDS: APIXABAN 2.5 MG TAB PO SCH ×2 (11:40→21:21)
--- NOTE | 2019-04-07 11:41 | Progress Note ---
Assessment and Plan Assessment and plan: Chest pain To r/o acute coronary syndrome Remote telemetry, serial cardiac enzymes, cardiology consulted Stress test in am Acute Bronchitis steroid therapy, antihistamine therapy, empiric antibiotic therapy Diabetes Consistent carb diet, insulin, accu check, hypoglycemia protocol Hypertension) monitor, BP q shift, continue medical management. History of deep vein thrombosis continue therapeutic anticoagulation with Eliquis DVT prophylaxis On Eliquis History Interval history: chest pain Hospitalist Physical - Physical exam Narrative exam: Gen: Not in acute distress, lying in bed, HEENT: Normocephalic, atraumatic Neck: supple, no JVD Heart: S1 and S2 reg, no murmurs, rubs or gallop Lungs: Clear, no crackles Abd: soft, non tender, non distended, normal BS, Ext: No edema, no clubbing, no cyanosis Neuro: Awake, alert, oriented X 3, No focal neurological signs - Constitutional Vitals: Temp Pulse Resp BP Pulse Ox 98.6 F 95 H 18 96/51 99 04/07/19 05:32 04/07/19 05:32 04/07/19 05:32 04/07/19 05:32 04/07/19 05:32 General appearance: Present: no acute distress Results - Labs CBC & Chem 7: 04/06/19 10:46 04/06/19 10:46 Labs: Laboratory Last Values WBC 7.7 K/mm3 (4.5-11.0) 04/06/19 10:46 RBC 4.06 M/mm3 (3.65-5.03) 04/06/19 10:46 Hgb 13.3 gm/dl (10.1-14.3) 04/06/19 10:46 Hct 39.4 % (30.3-42.9) 04/06/19 10:46 MCV 97 fl (79-97) 04/06/19 10:46 MCH 33 pg (28-32) H 04/06/19 10:46 MCHC 34 % (30-34) 04/06/19 10:46 RDW 12.3 % (13.2-15.2) L 04/06/19 10:46 Plt Count 181 K/mm3 (140-440) 04/06/19 10:46 D-Dimer 339.81 ng/mlDDU (0-234) H 04/06/19 11:42 Sodium 137 mmol/L (137-145) 04/06/19 10:46 Potassium 3.6 mmol/L (3.6-5.0) 04/06/19 10:46 Chloride 99.5 mmol/L (98-107) 04/06/19 10:46 Carbon Dioxide 21 mmol/L (22-30) L 04/06/19 10:46 Anion Gap 20 mmol/L 04/06/19 10:46 BUN 6 mg/dL (7-17) L 04/06/19 10:46 Creatinine 0.5 mg/dL (0.7-1.2) L 04/06/19 10:46 Estimated GFR > 60 ml/min 04/06/19 10:46 BUN/Creatinine Ratio 12 % 04/06/19 10:46 Glucose 174 mg/dL (65-100) H 04/06/19 10:46 POC Glucose 352 (70-105) H 04/07/19 08:39 Calcium 9.3 mg/dL (8.4-10.2) 04/06/19 10:46 Troponin T < 0.010 ng/mL (0.00-0.029) 04/06/19 12:55 NT-Pro-B Natriuret Pep 39.37 pg/mL (0-450) 04/06/19 12:55 Active Medications - Current Medications Current Medications: Generic Name Dose Route Start Last Admin Trade Name Freq PRN Reason Stop Dose Admin Acetaminophen 650 mg 04/06/19 16:13 Tylenol PO Q4H PRN Pain MILD(1-3)/Fever >100.5/SANTOS Albuterol 2.5 mg 04/06/19 16:13 Proventil IH Q4HRT PRN Shortness Of Breath Apixaban 2.5 mg 04/06/19 22:00 04/07/19 11:40 Eliquis PO 2.5 mg Q12HR JORDAN Administration Cyclobenzaprine HCl 10 mg 04/06/19 16:14 Flexeril PO TID PRN Muscle Spasm Dextrose 50 ml 04/06/19 18:17 D50w (25gm) Syringe IV Q30MIN PRN Hypoglycemia Protocol Hydrocodone Bit/Homatropine Methylb 10 ml 04/06/19 20:54 04/07/19 06:56 Hydromet PO 10 ml Q6H PRN Administration Cough Insulin Human Isoph/Insulin Regular 40 unit 04/07/19 09:00 04/07/19 09:00 Humulin 70/30 SUB-Q 40 unit BIDDIAB JORDAN Administration Insulin Human Lispro 0 unit 04/06/19 22:00 04/07/19 09:13 Humalog SUB-Q 8 unit ACHS JORDAN Administration Protocol Lisinopril 20 mg 04/06/19 19:00 04/06/19 18:42 Zestril PO 20 mg QDAY JORDAN Administration Miscellaneous Medication 1 applicatio 04/06/19 16:14 Menthol/Camphor [[place] Ointment] TP QID PRN pain Naproxen 500 mg 04/06/19 16:14 Naproxen PO BID PRN pain Ondansetron HCl 4 mg 04/06/19 16:13 Zofran IV Q8H PRN Nausea And Vomiting Sodium Chloride 10 ml 04/06/19 22:00 04/07/19 11:40 Sodium Chloride Flush Syringe 10 Ml IV 10 ml BID JORDAN Administration Sodium Chloride 10 ml 04/06/19 16:13 Sodium Chloride Flush Syringe 10 Ml IV PRN PRN LINE FLUSH
[2019-04-07] MEDS: LISINOPRIL 20 MG TAB PO SCH (16:54)
[2019-04-07] MEDS ORDERED: APIXABAN 2.5 MG TAB PO SCH (18:00)
[2019-04-08] MEDS ORDERED: REGADENOSON 0.4 MG/5 ML INJ IV ONE ×2 (07:02→07:18)
[2019-04-08] MEDS: INSULIN NPH/REGULAR 70/30 INJ SUB-Q SCH ×2 (08:05→17:53)
[2019-04-08] MEDS: INSULIN LISPRO 100 UNIT/ML SUB-Q SCH ×3 (08:05→17:52)
[2019-04-08] MEDS: APIXABAN 2.5 MG TAB PO SCH (12:55)
[2019-04-08] MEDS: LISINOPRIL 20 MG TAB PO SCH (12:55)
--- NOTE | 2019-04-08 13:55 | Event Note ---
Date: 04/08/19 Patient underwent a Lexiscan thallium stress test today, normal myocardial perfusion study with no significant defects, negative study.
--- NOTE | 2019-04-08 15:06 | Discharge Summary ---
Providers - Providers Date of Admission: 04/06/19 16:13 Date of discharge: 04/08/19 Attending physician: BALA MIJARES 04/06/19 20:52 Consult to Cardiology [CONS] Routine Consulting Provider: FLORINDA MARES Reason For Exam: angina Primary care physician: TECHNOLOGY TEACHER Hospitalization Condition: Stable Pertinent studies: Chest x-ray VQ scan MPS stress stress 2-D echocardiogram Hospital course: 48-year-old female with a history of hypertension diabetes and asthma presented to the ER with complaints of Retrosternal chest pain for over 2 weeks . Patient was evaluated in the ER, initial cardiac enzyme and EKG was unremarkable, chest x-ray showed no infiltrates. Patient was admitted and underwent myocardial stress test which was normal. Patient was then discharged home in stable condition with outpatient follow-up. Discharge diagnoses: Atypical chest pain, occurs mostly with cough - Likely due to allergic bronchitis, No prior h/o CAD - Cardiac enzymes and NT-proBNP negative, negative stress test Other chronic issues History of DVT on Eliquis HTN, stable DM, Asthma Hospitalist physical: GENERAL: well-developed and well-nourished AAF lying on bed appeared to be in no discomfort. HEENT: Normocephalic. Atraumatic. No conjunctival congestion or icterus. Patient has moist mucous membranes. NECK: Supple. Trachea midline. CHEST/LUNGS: Clear to auscultated bilaterally, breathing nonlabored. No wheezes crackles or rhonchi. HEART/CARDIOVASCULAR: Regular in rate and rhythm. S1 and S2 positive. ABDOMEN: Abdomen is soft, nontender. Patient has normal bowel sounds. SKIN: There is no rash. Warm and dry. NEURO: No focal motor deficit. Follows command. MUSCULOSKELETAL: No joint effusion or tenderness. EXTRIMITY: No edema, no cyanosis or clubbing. PSYCH: Cooperative. Disposition: DC-01 TO HOME OR SELFCARE Time spent for discharge: 34 minutes Core Measure Documentation - Palliative Care Palliative Care/ Comfort Measures: Not Applicable - Core Measures Any of the following diagnoses?: none Exam - Constitutional Vitals: Temp Pulse Resp BP Pulse Ox 98.4 F 97 H 20 131/85 95 04/08/19 12:04 04/08/19 12:04 04/08/19 12:04 04/08/19 12:55 04/08/19 12:04 Plan Activity: advance as tolerated Weight Bearing Status: Weight Bear as Tolerated Diet: low fat, low salt, diabetic Special Instructions: record blood sugar diary Follow up with: PRIMARY CARE, [Primary Care Provider] - 3-5 Days KIET VERA MD [Staff Physician] - 7 Days
[2019-04-08 16:45] VITALS: BP 106/74
--- NOTE | 2019-04-08 21:20 | Treadmill Report ---
THALLIUM STRESS TEST LEFT VENTRICLE: Left ventricular chamber size is within normal spread. Perfusion study demonstrates homogeneous uptake of the tracer in all segments, no significant perfusion defects identified. Gated analysis demonstrates left ventricular systolic function at the lower limits of normal, ejection fraction 49%. CONCLUSION: No demonstrable ischemia on thallium perfusion imaging. Negative study. Recommend clinical correlation and echocardiographic reassessment of left ventricular systolic function. [facility]# [id number] [place]/NTS
== END 2019-04-08 19:08 | disposition home or self-care (01) ==
LOC: ED 09:14 → 3A 16:13
PROVIDERS: ADMIT Internal Medicine; ATTEND Internal Medicine
DX: I20.8 Other forms of angina pectoris (principal); J40 Bronchitis, not specified as acute or chronic; E11.9 Type 2 diabetes mellitus without complications; I10 Essential (primary) hypertension; R05 Cough; Z86.718 Personal history of other venous thrombosis and embolism; Z98.891 History of uterine scar from previous surgery; Z98.51 Tubal ligation status; Z79.4 Long term (current) use of insulin
CPT/HCPCS: 36415; 71046; 78452; 78582; 80048; 82962; 83880; 84484; 85027; 85379; 93005; 93010; 93017; 93306; 94640; 94644; 96372; 99284; A9502; A9540; A9558; G0378; J1815; J2785

== ENCOUNTER 2019-08-07 17:49 | Emergency (ER) | payer MEDICARE ==
[2019-08-07 18:11] VITALS: BP 179/113
[2019-08-07] MEDS ORDERED: SODIUM CHLORIDE 0.9% 1000 ML 1,000 ML IV ONE (18:14)
[2019-08-07] MEDS ORDERED: HYDROmorphone 1 MG/1 ML INJ IV ONE (18:14)
[2019-08-07] MEDS ORDERED: KETOROLAC 30 MG/1 ML INJ IV ONE (18:23)
--- NOTE | 2019-08-07 18:42 | Emergency Department Report ---
ED Female HPI - General Chief complaint: Urogenital-Female Stated complaint: UTI Time Seen by Provider: 08/07/19 18:12 Source: patient Mode of arrival: Ambulatory Limitations: No Limitations - History of Present Illness Initial comments: 48-year-old -[place]ian female presents to the emergency room complaining of flank and suprapubic pain with hematuria. Patient reports that she cannot get comfortable. She reports urinary urgency and frequency. She denies any fever chills no nausea no vomiting. Patient reports she has had a hysterectomy back in 2004. She is not concerned for any STDs. -: This morning Location: suprapubic Radiation: L flank, R flank Severity: severe Severity scale (0 -10): 10 Quality: sharp, stabbing Consistency: constant Improves with: none Worsens with: none Are you Now?: No (Hysterectomy 2004) - Related Data Home Medications Medication Instructions Recorded Confirmed Last Taken lisinopriL [Zestril TAB] 20 mg PO QDAY 04/04/13 04/07/19 10/29/14 Insulin Aspart Prot/Aspart(Nf) 40 units SUB-Q BID 01/15/16 09/03/18 Unknown [NovoLOG Mix 70/30 VIAL] Insulin NPH Hum/Reg Insulin Hm 40 unit SQ BID 04/06/19 04/06/19 Unknown [HumuLIN 70-30 Vial] Linagliptin [Tradjenta] 10 mg PO QDAY 04/06/19 04/06/19 Unknown Previous Rx's Medication Instructions Recorded Last Taken Type Cyclobenzaprine [Flexeril 10 MG 10 mg PO TID PRN #30 tablet 03/15/19 Unknown Rx TAB] Menthol/Camphor [[place] 1 applicatio TP QID PRN #1 tube 03/15/19 Unknown Rx Ointment] Naproxen 500 mg PO BID PRN #30 tablet 03/15/19 Unknown Rx Apixaban [Eliquis] 2.5 mg PO Q12HR tablet 04/08/19 Unknown Rx cephALEXin [Keflex] 500 mg PO Q12HR 10 Days #20 cap 08/07/19 Unknown Rx Allergies Allergy/AdvReac Type Severity Reaction Status Date / Time apple Allergy Severe Hives Verified 08/07/19 18:06 morphine Allergy DECREASED Verified 08/07/19 18:06 HR shellfish derived Allergy Shortness Verified 08/07/19 18:06 of Breath ED Review of Systems ROS: Stated complaint: UTI Other details as noted in HPI Comment: All other systems reviewed and negative ED Past Medical Hx - Past Medical History Hx Hypertension: Yes Hx CVA: No Hx Heart Attack/AMI: No Hx Congestive Heart Failure: No Hx Diabetes: Yes Hx Deep Vein Thrombosis: No Hx Pulmonary Embolism: No Hx GERD: No Hx Liver Disease: No Hx Renal Disease: No Hx Sickle Cell Disease: No Hx Arthritis: No Hx Headaches / Migraines: No Hx Seizures: No Hx Kidney Stones: No Hx Psychiatric Treatment: No Hx Asthma: Yes Hx COPD: No Hx Tuberculosis: No Hx Dementia: No Hx HIV: No Additional medical history: enlarge heart,DVT - Surgical History Hx Coronary Stent: No Hx Open Heart Surgery: No Hx Pacemaker: No Hx Internal Defibrillator: No Hx Cholecystectomy: No Hx Appendectomy: No Hx Breast Surgery: No Additional Surgical History: TUBAL LIGATION. x3 - Social History Smoking Status: Never Smoker Substance Use Type: None - Medications Home Medications: Home Medications Medication Instructions Recorded Confirmed Last Taken Type lisinopriL [Zestril TAB] 20 mg PO QDAY 04/04/13 04/07/19 10/29/14 History Insulin Aspart Prot/Aspart(Nf) 40 units SUB-Q BID 01/15/16 09/03/18 Unknown History [NovoLOG Mix 70/30 VIAL] Cyclobenzaprine [Flexeril 10 MG 10 mg PO TID PRN #30 tablet 03/15/19 04/07/19 Unknown Rx TAB] Menthol/Camphor [[place] 1 applicatio TP QID PRN #1 tube 03/15/19 04/07/19 Unknown Rx Ointment] Naproxen 500 mg PO BID PRN #30 tablet 03/15/19 04/07/19 Unknown Rx Insulin NPH Hum/Reg Insulin Hm 40 unit SQ BID 04/06/19 04/06/19 Unknown History [HumuLIN 70-30 Vial] Linagliptin [Tradjenta] 10 mg PO QDAY 04/06/19 04/06/19 Unknown History Apixaban [Eliquis] 2.5 mg PO Q12HR tablet 04/08/19 Unknown Rx cephALEXin [Keflex] 500 mg PO Q12HR 10 Days #20 cap 08/07/19 Unknown Rx ED Physical Exam - General Limitations: No Limitations General appearance: alert, in distress - Head Head exam: Present: atraumatic, normocephalic - Eye Eye exam: Present: normal appearance - ENT ENT exam: Present: mucous membranes moist - Cardiovascular Cardiovascular Exam: Present: tachycardia - GI/Abdominal GI/Abdominal exam: Present: soft, tenderness, normal bowel sounds. Absent: distended - Neurological Exam Neurological exam: Present: alert, oriented X3 - Psychiatric Psychiatric exam: Present: normal affect, normal mood - Skin Skin exam: Present: warm, dry, intact, normal color. Absent: rash ED Course Vital Signs 08/07/19 18:07 Temperature 98.9 F Pulse Rate 137 H Respiratory 20 Rate Blood Pressure 179/113 O2 Sat by Pulse 96 Oximetry ED Medical Decision Making - Lab Data Result diagrams: 08/07/19 19:04 - Radiology Data Radiology results: report reviewed Ordering Physician: ROSELYN HERNANDEZ Date of Service: 08/07/19 Procedure(s): CT abdomen pelvis wo con Accession Number(s): [id number] cc: ROSELYN HERNANDEZ CT abdomen pelvis wo con INDICATION / CLINICAL INFORMATION: severe flank and abd pain. TECHNIQUE: All CT scans at this location are performed using CT dose reduction for ALARA by means of automated exposure control. COMPARISON: 09/20/2016 FINDINGS: No acute disease in either lower lung. ABDOMEN: The gallbladder, liver, spleen, pancreas, kidneys and adrenal glands are normal. No mesenteric or retroperitoneal adenopathy. Colonic diverticulosis involving predominantly the right colon. Pelvis: The appendix is normal. A 2.5 cm left ovarian cyst is identified. No dependent fluid collections are seen in the pelvis. Urinary bladder is nondistended. Postsurgical changes are seen in the lower anterior abdominal wall without evidence of hernia. No skeletal abnormality. IMPRESSION: 1. No acute abdominal or pelvic abnormality. 2. 2.5 cm left ovarian cyst. 3. Colonic diverticulosis. Signer Name: Watson Gutierrez MD Signed: 08/07/2019 7:15 PM Workstation Name: [id number] Transcribed By: GEN Dictated By: Watson Gutierrez MD Electronically Authenticated By: Watson Gutierrez MD Signed Date/Time: 08/07/191914 - Medical Decision Making 48-year-old -Romanian female presents to the emergency room complaining of flank and suprapubic pain with hematuria. Patient reports that she cannot get comfortable. She reports urinary urgency and frequency. She denies any fever chills no nausea no vomiting. Patient reports she has had a hysterectomy back in 2004. She is not concerned for any STDs. Critical care attestation.: If time is entered above; I have spent that time in minutes in the direct care of this critically ill patient, excluding procedure time. ED Disposition Clinical Impression: UTI (urinary tract infection), Hematuria Disposition: TO HOME OR SELFCARE Is pt being admited?: No Does the pt Need Aspirin: No Condition: Stable Prescriptions: cephALEXin [Keflex] 500 mg PO Q12HR 10 Days #20 cap
[2019-08-07 18:57] LABS: Bacteria,Urine 2+ /HPF (Negative); Bilirubin,Urine NEG (Negative); Blood,Urine LG (Negative); Color,Urine Yellow (Yellow); Urobilinogen,Urine < 2.0 mg/dL (<2.0); WBC,Urine > 182.0 /HPF (0.0-6.0)
--- NOTE | 2019-08-07 19:19 | Cat Scan Report ---
CT abdomen pelvis wo con INDICATION / CLINICAL INFORMATION: severe flank and abd pain. TECHNIQUE: All CT scans at this location are performed using CT dose reduction for ALARA by means of automated e xposure control. COMPARISON: 09/20/2016 FINDINGS: No acute disease in either lower lung. ABDOMEN: The gallbladder, liver, spleen, pancreas, kidneys and adrenal glands are normal. No mesenteric or retroperitoneal adenopathy. Colonic diverticulosis involving predominantly the right colon. Pelvis: The appendix is normal. A 2.5 cm left ovarian cyst is identified. No dependent fluid collections are seen in the pelvis. Urinary bladder is nondistended. Postsurgical changes are seen in the lower anterior abdominal wall without evidence of hernia. No skeletal abnormality. IMPRESSION: 1. No acute abdominal or pelvic abnormality. 2. 2.5 cm left ovarian cyst. 3. Colonic diverticulosis. Signer Name: Watson Gutierrez MD Signed: 08/07/2019 7:15 PM Workstation Name: [id number]
[2019-08-07 19:34] LABS: Basophils # (Auto) 0.1 K/mm3 (0.0-0.1); Basophils % (Auto) 0.4 % (0.0-1.8); Eosinophils # (Auto) 0.1 K/mm3 (0.0-0.4); Eosinophils % (Auto) 0.7 % (0.0-4.3); Hematocrit 34.8 % (30.3-42.9); Hemoglobin 11.6 gm/dl (10.1-14.3); Lymphocytes # (Auto) 3.5 K/mm3 (1.2-5.4); Lymphocytes % (Auto) 26.7 % (13.4-35.0); Mean Corpuscular HGB Conc 33 % (30-34); Mean Corpuscular Volume 97 fl (79-97); Monocytes % (Auto) 7.9 % (0.0-7.3); Platelet Count 165 K/mm3 (140-440); Red Blood Count 3.59 M/mm3 (3.65-5.03); Red Cell Distribution Width 12.3 % (13.2-15.2)
[2019-08-07 19:56] LABS: Erythrocyte Sedimentation Rate 24 mm/Hr (0-20)
[2019-08-07 19:58] LABS: Alanine Aminotransferase 13 units/L (7-56); Albumin 3.7 g/dL (3.9-5); BUN/Creatinine Ratio 13; Blood Urea Nitrogen 8 mg/dL (7-17); Calcium 8.7 mg/dL (8.4-10.2); Hemolysis Index 44
== END 2019-08-07 23:08 | disposition home or self-care (01) ==
LOC: ED 17:49
DX: N39.0 Urinary tract infection, site not specified (principal)
CPT/HCPCS: 36415; 74176; 80053; 81001; 82140; 85025; 85652; 87086; 96374; 99284; J1885; J7030; 87076; 87186

== ENCOUNTER 2020-01-08 11:06 | Emergency (ER) | payer MEDICARE ==
--- NOTE | 2020-01-08 12:00 | Event Note ---
ED Screening Note Date of service: 01/08/20 Time: 11:59 ED Screening Note: 49-year-old female with a history of diabetes and asthma presents the ED complaining of left-sided chest pain x1 week worsening with shortness of breath This initial assessment/diagnostic orders/clinical plan/treatment(s) is/are subject to change based on patients health status, clinical progression and re- assessment by fellow clinical providers in the ED. Further treatment and workup at subsequent clinical providers discretion. Patient/guardian urged not to elope from the ED as their condition may be serious if not clinically assessed and managed. Initial orders include: Chest pain protocol, x-ray
[2020-01-08 12:47] LABS: Basophils % (Auto) 0.6 % (0.0-1.8); Eosinophils # (Auto) 0.1 K/mm3 (0.0-0.4); Eosinophils % (Auto) 1.5 % (0.0-4.3); Hematocrit 37.5 % (30.3-42.9); Hemoglobin 12.8 gm/dl (10.1-14.3); Lymphocytes # (Auto) 3.1 K/mm3 (1.2-5.4); Lymphocytes % (Auto) 39.5 % (13.4-35.0); Mean Corpuscular HGB Conc 34 % (30-34); Mean Corpuscular Volume 97 fl (79-97); Monocytes # (Auto) 0.6 K/mm3 (0.0-0.8); Monocytes % (Auto) 7.8 % (0.0-7.3); Platelet Count 140 K/mm3 (140-440); Red Blood Count 3.86 M/mm3 (3.65-5.03); Red Cell Distribution Width 12.6 % (13.2-15.2)
--- NOTE | 2020-01-08 12:53 | XRay Report ---
CHEST 1 VIEW INDICATION / CLINICAL INFORMATION: Chest Pain. COMPARISON: 04/06/2019 FINDINGS: SUPPORT DEVICES: None. HEART / MEDIASTINUM: No significant abnormality. LUNGS / PLEURA: No significant pulmonary or pleural abnormality. No pneumothorax. ADDITIONAL FINDINGS: No significant additional findings. IMPRESSION: 1. No acute findings. Signer Name: Jluis Estrada MD Signed: 01/08/2020 12:49 PM Workstation Name: [id number]
[2020-01-08 13:06] LABS: BUN/Creatinine Ratio 13; Blood Urea Nitrogen 8 mg/dL (7-17); Calcium 9.8 mg/dL (8.4-10.2); Hemolysis Index 3
[2020-01-08] MEDS ORDERED: fentaNYL 100 MCG/2 ML INJ IV ONE (14:36)
[2020-01-08] MEDS ORDERED: ONDANSETRON 4 MG/2 ML INJ IV ONE (14:36)
[2020-01-08] MEDS ORDERED: NITROGLYCERIN 2% OINT 1 GM TP ONE (14:36)
--- NOTE | 2020-01-08 14:42 | Emergency Department Report ---
HPI - General Chief Complaint: Chest Pain PUI?: No Time Seen by Provider: 01/08/20 14:26 - HPI HPI: Room 5 The patient is a 49-year-old female present with a chief complaint of chest pain palpitations. The patient states for 1 week she is having palpitations in addition to his stabbing left-sided chest pain. Patient states she has had shortness of breath, lightheadedness associated with her palpitations. Patient denies cough, fever or pleurisy. Patient denies nausea/vomiting or diaphoresis but admits to shortness of breath with her chest pain. Patient currently states she has slight pressure in her chest and gives it a score of 4-5/10. Patient states she had a normal stress test in May but has never had a cardiac catheterization ED Past Medical Hx - Past Medical History Previous Medical History?: Yes Hx Hypertension: Yes Hx Diabetes: Yes Hx Asthma: Yes Additional medical history: enlarge heart,DVT - Surgical History Past Surgical History?: Yes Additional Surgical History: TUBAL LIGATION. x3 - Family History Family history: no significant - Social History Smoking Status: Never Smoker Substance Use Type: None (Denies illicit drug use), Alcohol (Occasional) - Medications Home Medications: Home Medications Medication Instructions Recorded Confirmed Last Taken Type Insulin NPH Hum/Reg Insulin Hm 40 unit SQ BID 04/06/19 01/08/20 Unknown History [HumuLIN 70-30 Vial] Linagliptin [Tradjenta] 10 mg PO QDAY 04/06/19 01/08/20 Unknown History Apixaban [Eliquis] 2.5 mg PO Q12HR tablet 04/08/19 01/08/20 Unknown Rx Ibuprofen [Motrin] 800 mg PO Q8HR PRN #30 tablet 01/08/20 Unknown Rx Insulin Detemir (Nf) [Levemir 50 units SQ QHS 01/08/20 01/08/20 Unknown History Flextouch (Nf)] ED Review of Systems ROS: Stated complaint: CP/CP/PALPATATION Other details as noted in HPI Constitutional: denies: diaphoresis, fever Respiratory: shortness of breath Cardiovascular: chest pain, palpitations Endocrine: no symptoms reported Gastrointestinal: denies: nausea, vomiting Neurological: other (Lightheadedness) Physical Exam - Physical Exam Vital Signs: Vital Signs 01/08/20 01/08/20 11:16 14:30 Temperature 98.8 F Pulse Rate 108 H 90 Respiratory 18 20 Rate Blood Pressure 129/80 Blood Pressure 123/94 [Left] O2 Sat by Pulse 98 98 Oximetry Physical Exam: GENERAL: The patient is well-developed well-nourished female lying on stretcher not appearing to be in acute distress. [] HEENT: Normocephalic. Atraumatic. Extraocular motions are intact. Patient has moist mucous membranes. NECK: Supple. Trachea midline CHEST/LUNGS: Clear to auscultation. There is no respiratory distress noted. HEART/CARDIOVASCULAR: Regular. There is no tachycardia. There is no gallop rub or murmur. ABDOMEN: Abdomen is soft, nontender. Patient has normal bowel sounds. There is no abdominal distention. SKIN: There is no rash. There is no edema. There is no diaphoresis. NEURO: The patient is awake, alert, and oriented. The patient is cooperative. The patient has normal speech MUSCULOSKELETAL: There is no evidence of acute injury. ED Course Vital Signs 01/08/20 01/08/20 11:16 14:30 Temperature 98.8 F Pulse Rate 108 H 90 Respiratory 18 20 Rate Blood Pressure 129/80 Blood Pressure 123/94 [Left] O2 Sat by Pulse 98 98 Oximetry ED Medical Decision Making - Lab Data Result diagrams: 01/08/20 12:06 01/08/20 12:06 - EKG Data -: EKG Interpreted by Me EKG shows normal: sinus rhythm Rate: normal - EKG Data When compared to previous EKG there are: previous EKG unavailable Interpretation: other (No ischemic changes seen) - Radiology Data Radiology results: report reviewed (Chest x-ray), image reviewed (Chest x-ray) interpreted by me: Chest x-ray-no focal infiltrates, no pneumothorax, no foreign body [facility] [address] [place] [address] XRay Report Signed Patient: ALICE OLIVIA MR#: [id number] : 1970 Acct:[id number] Age/Sex: 49 / F ADM Date: 01/08/20 Loc: ED Attending Dr: Ordering Physician: ROSELYN MARTINEZ Date of Service: 01/07 Procedure(s): XR chest 1V ap Accession Number(s): [id number] cc: ROSELYN MARTINEZ Fluoro Time In Minutes: CHEST 1 VIEW INDICATION / CLINICAL INFORMATION: Chest Pain. COMPARISON: 04/06/2019 FINDINGS: SUPPORT DEVICES: None. HEART / MEDIASTINUM: No significant abnormality. LUNGS / PLEURA: No significant pulmonary or pleural abnormality. No pneumothorax. ADDITIONAL FINDINGS: No significant additional findings. IMPRESSION: 1. No acute findings. Signer Name: Aneta Estrada MD Signed: 01/08/2020 12:49 PM Workstation Name: [id number] Transcribed By: Dictated By: ANETA ESTRADA III Electronically Authenticated By: ANETA ESTRADA III Signed Date/Time: 01/08/20 1249 DD/ 1248 TD/TT: - Differential Diagnosis ACS, dysrhythmia, PE, pericarditis, GERD Critical care attestation.: If time is entered above; I have spent that time in minutes in the direct care of this critically ill patient, excluding procedure time. ED Disposition Clinical Impression: Chest pain, Palpitations Disposition: OP ADMIT IP TO THIS HOSP Is pt being admited?: Yes Does the pt Need Aspirin: Yes Condition: Stable Instructions: Chest Pain (ED), Palpitations (ED) Additional Instructions: return if worse Prescriptions: Ibuprofen [Motrin] 800 mg PO Q8HR PRN #30 tablet PRN Reason: pain Referrals: RACHEL DE GUZMAN MD [Primary Care Provider] - 3-5 Days GEETHA BHAKTA MD [Staff Physician] - 3-5 Days Forms: Work/School Release Form(ED)
[2020-01-08] MEDS ORDERED: ASPIRIN 325 MG TAB ONE (14:59)
[2020-01-08] MEDS: ASPIRIN 325 MG TAB PO ONE ×2 (15:05→15:11)
[2020-01-08] MEDS ORDERED: SODIUM CHLORIDE 0.9% 1000 ML 1,000 ML IV ONE (16:18)
[2020-01-08 20:15] VITALS: BP 106/61
--- NOTE | 2020-01-08 20:43 | Nuclear Medicine Report ---
Nuclear medicine PERFUSION ONLY LUNG SCAN. History: Chest pain Procedure: The patient was administered 5.1mCi of technetium 99m labeled MAA intravenously. Findings: No focal segmental defects are seen on perfusion imaging. Impression: Low probability of pulmonary embolus. Signer Name: Jacob Biswas MD Signed: 01/08/2020 8:39 PM Workstation Name: [id number]
--- NOTE | 2020-01-08 21:25 | Emergency Department Report ---
Blank Doc - Documentation Documentation: At 9:15 PM I reexamined the patient and stated she was chest pain-free and we discussed results of her laboratory studies and VQ scan of the chest. Discussed with patient that she had a series of 3- troponins and the VQ scan showed low probability for PE. We discussed admission but patient states she rather go home and follow-up with cardiology as outpatient. I felt that this was reasonable since the patient's had continuous chest pain she states for the last 2 days with 3 negative troponins and a low probability VQ scan.
== END 2020-01-08 21:39 | disposition admitted as inpatient to this hospital (09) ==
LOC: ED 11:06
DX: R07.89 Other chest pain (principal); R00.2 Palpitations; I10 Essential (primary) hypertension; E11.9 Type 2 diabetes mellitus without complications; J45.909 Unspecified asthma, uncomplicated; Z98.51 Tubal ligation status; Z98.890 Other specified postprocedural states; Z79.1 Long term (current) use of non-steroidal anti-inflammatories (NSAID); Z79.4 Long term (current) use of insulin; Z79.899 Other long term (current) drug therapy; Z88.8 Allergy status to other drugs, medicaments and biological substances; Z91.013 Allergy to seafood; Z91.018 Allergy to other foods
CPT/HCPCS: 36415; 71045; 78580; 80048; 82962; 84484; 85025; 85379; 93005; 96361; 96374; 96375; 99285; A9540; J2405; J3010; J7030